=== PATIENT | male | born 1945 | race Caucasian/White ===

== ENCOUNTER → 2017-03-26 | Outpatient (CLI) | payer MEDICARE ==
--- NOTE | 2017-03-26 10:00 | XR ---
EXAMINATION TYPE: XR chest 2V DATE OF EXAM: 03/26/2017 COMPARISON: 12/12/2014 TECHNIQUE: PA and lateral views submitted. HISTORY: Cough FINDINGS: The lungs are clear and there is no pneumothorax, pleural effusion, or focal pneumonia. Atheroscler otic change aorta and arthropathy AC joints. IMPRESSION: 1. No acute process.
== END | disposition home or self-care (01) ==
LOC: RADXRMAIN 09:38
PROVIDERS: ATTEND Family Medicine
DX: R05 Cough (principal)
CPT/HCPCS: 71020

== ENCOUNTER → 2017-11-01 | Outpatient (CLI) | payer MEDICARE ==
--- NOTE | 2017-11-01 07:12 | US ---
EXAMINATION TYPE: US duplex aorta DATE OF EXAM: 11/01/2017 COMPARISON: NONE CLINICAL HISTORY: Z13.9 Screening for Disorder. Abnormal x-ray per patient, no symptoms EXAM MEASUREMENTS: Abdominal Aorta: Proximal: 2.7 x 2.7cm Mid: 2.2 x 2.3cm Distal: 1.7 x 2.0cm Bifurcation: not seen due to bowel gas Large body habitus and bowel gas limits exam, but no obvious abnormality seen IMPRESSION: Suboptimal study without ultrasound evidence for abdominal aortic aneurysm.
== END | disposition home or self-care (01) ==
LOC: RADUSWWP 06:41
PROVIDERS: ATTEND Family Medicine
DX: Z13.6 Encounter for screening for cardiovascular disorders (principal)
CPT/HCPCS: 93979

== ENCOUNTER 2017-11-19 07:40 | Day surgery (SDC) | payer MEDICARE ==
[~2017-11-19 07:40] MED LIST: LACTATED RINGERS 1,000 ML IV SCH
[2017-11-19 08:04] VITALS: TEMP 98.6
[2017-11-19] MEDS ORDERED: LIDOCAINE 1% 20 ML VIAL (10MG/ML) FOR IV START INTRADERMA ONE (08:14)
[2017-11-19] MEDS ORDERED: GLYCOPYRROLATE 0.2 MG/ML 2 ML VIAL ONE (09:09)
[2017-11-19] MEDS ORDERED: PROPOFOL 10 MG/ML 20 ML VIAL IV ONE (09:09)
[2017-11-19] MEDS ORDERED: LIDOCAINE 1% INJ 10MG/ML (20 ML MDV) ONE (09:09)
--- NOTE | 2017-11-19 09:42 | P.OP ---
Date of Procedure: 11/19/17 Preoperative Diagnosis: Screening colonoscopy Postoperative Diagnosis: Same Procedure(s) Performed: Colonoscopy Anesthesia: MAC Surgeon: Lola Carter Estimated Blood Loss (ml): 0 IV fluids (ml): 500 Pathology: none sent Condition: stable Disposition: PACU Indications for Procedure: Screening colonoscopy Operative Findings: Normal mucosa from cecum to the rectum small internal hemorrhoids Description of Procedure: Patient was taken to the endoscopy suite and following sedation rectal exam was performed. Patient was noted to have good sphincter tone no masses. Colonoscope was passed through the anus into the rectum. Was passed through the sigmoid colon up to splenic flexure. Through the transverse colon hepatic flexure right colon down to the area of the cecum. Circumferential observation mucosa did not reveal any lesions of concern in the cecum or right colon. No lesions of concern in the transverse colon left colon or sigmoid colon. Scope was brought down to the rectum where it was retroflexed internal hemorrhoids identified. Aproximally 6 minutes were taken to withdraw the scope from the area of the cecum to the rectum. Impression/plan: 1. Internal hemorrhoids Plan: 1. Repeat scope 7-10 years, patient may not occur secondary to the fact patient will be 82 at that time
--- NOTE | 2017-11-19 09:44 | P.DS ---
Providers Attending physician: Lola Carter Primary care physician: Chris Hogue Plan - Discharge Summary Discharge Rx Participant: No New Discharge Prescriptions: No Action Tamsulosin HCl [Flomax] 0.4 mg PO QAM Hydrochlorothiazide [Hydrochlorothiazide] 25 mg PO QAM Finasteride [Proscar] 5 mg PO QAM [place]-3 Fatty Acids/Fish Oil [Fish Oil 1,000 mg Softgel] 1 tab PO DAILY Aspirin [Adult Low Dose Aspirin EC] 81 mg PO DAILY Discharge Medication List Tamsulosin HCl [Flomax] 0.4 mg PO QAM 07/23/14 [History] Hydrochlorothiazide [Hydrochlorothiazide] 25 mg PO QAM 12/12/14 [History] Aspirin [Adult Low Dose Aspirin EC] 81 mg PO DAILY 11/15/17 [History] Finasteride [Proscar] 5 mg PO QAM 11/15/17 [History] [place]-3 Fatty Acids/Fish Oil [Fish Oil 1,000 mg Softgel] 1 tab PO DAILY [History] Follow up Appointment(s)/Referral(s): Lola Carter MD [STAFF PHYSICIAN] - As Needed Activity/Diet/Wound Care/Special Instructions: do not drive today Discharge Disposition: HOME SELF-CARE
[2017-11-19 09:56] VITALS: RESP 16
[2017-11-19 10:11] VITALS: BP 128/82; PULSE 69
== END 2017-11-19 10:24 | disposition home or self-care (01) ==
LOC: ORWHC2ENDO 07:40
PROVIDERS: ATTEND Surgery
DX: Z12.11 Encounter for screening for malignant neoplasm of colon (principal); K64.8 Other hemorrhoids; K21.9 Gastro-esophageal reflux disease without esophagitis; I10 Essential (primary) hypertension; E78.5 Hyperlipidemia, unspecified; G47.33 Obstructive sleep apnea (adult) (pediatric); K85.90 Acute pancreatitis without necrosis or infection, unspecified; Z79.899 Other long term (current) drug therapy
CPT/HCPCS: J2001; J2704; G0121

== ENCOUNTER 2021-06-29 17:12 | Emergency (ER) | payer MEDICARE ==
[2021-06-29] MEDS ORDERED: MORPHINE SULFATE 4 MG/ML SYRINGE IV STA (18:21)
[2021-06-29] MEDS ORDERED: SODIUM CHLORIDE 0.9% 500 ML 500 ML IV STA (18:21)
[2021-06-29] MEDS ORDERED: ACETAMINOPHEN TAB 500 MG TAB PO STA (18:21)
--- NOTE | 2021-06-29 18:28 | ED ---
General Adult HPI - General Source: patient, RN notes reviewed Mode of arrival: ambulatory Limitations: no limitations <Filemon Villarreal - Last Filed: 06/29/21 21:09> <Stephanie Day - Last Filed: 06/30/21 00:13> - General Chief complaint: Abdominal Pain Stated complaint: Abd pain, neck pain, headache Time Seen by Provider: 06/29/21 17:49 - History of Present Illness Initial comments: 75-year-old with a past medical history pancreatitis, hyperlipidemia, hypertension, GERD presents to the emergency room for a chief complaint of abdominal pain. Patient states she has had abdominal pain on and off since last night. States it is in the lower abdomen. It is a dull pain.He initiated nausea vomiting diarrhea. Patient did have a low-grade fever at home of 100. Patient also complains of some right-sided neck pain with been going on for a week. Hurts worse with movement. Comes and goes and is a sharp pain. Has also had a mild headache. His is concerned about coronavirus.Patient has no other complaints at this time including shortness of breath, chest pain,nausea or vomiting, , or visual changes. (Filemon Villarreal) - Related Data Home Medications Medication Instructions Recorded Confirmed Tamsulosin HCl [Flomax] 0.4 mg PO DAILY 07/23/14 06/29/21 Hydrochlorothiazide 25 mg PO DAILY 12/12/14 06/29/21 Finasteride [Proscar] 5 mg PO DAILY 11/15/17 06/29/21 Krill Oil 1,000 mg PO DAILY 06/29/21 06/29/21 Meclizine [Antivert] 25 mg PO TID PRN 06/29/21 06/29/21 Allergies Allergy/AdvReac Type Severity Reaction Status Date / Time No Known Allergies Allergy Verified 06/29/21 18:23 Review of Systems ROS Other: All systems not noted in ROS Statement are negative. <Filemon Villarreal - Last Filed: 06/29/21 21:09> ROS Other: All systems not noted in ROS Statement are negative. <Stephanie Day - Last Filed: 06/30/21 00:13> ROS Statement: Those systems with pertinent positive or pertinent negative responses have been documented in the HPI. Past Medical History Past Medical History: GERD/Reflux, Hyperlipidemia, Hypertension, Prostate Di sorder, Sleep Apnea/CPAP/BIPAP Additional Past Medical History / Comment(s): PAncreatitis. DOES NOT USE CPAP History of Any Multi-Drug Resistant Organisms: None Reported Past Surgical History: Orthopedic Surgery Additional Past Surgical History / Comment(s): foot surg., surg. for sleep apnea Past Anesthesia/Blood Transfusion Reactions: No Reported Reaction Past Psychological History: No Psychological Hx Reported Smoking Status: Never smoker Past Alcohol Use History: None Reported Past Drug Use History: None Reported <Filemon Villarreal P - Last Filed: 06/29/21 21:09> General Exam Limitations: no limitations General appearance: alert, in no apparent distress Head exam: Present: atraumatic Eye exam: Present: normal appearance, PERRL, EOMI. Absent: scleral icterus, conjunctival injection ENT exam: Present: normal exam, normal oropharynx, mucous membranes moist, TM's normal bilaterally, normal external ear exam Neck exam: Present: normal inspection, full ROM. Absent: tenderness, other (No erythema or edema) Respiratory exam: Present: normal lung sounds bilaterally. Absent: respiratory distress, wheezes Cardiovascular Exam: Present: regular rate, normal rhythm, normal heart sounds GI/Abdominal exam: Present: soft, tenderness (Minimal lower abdominal tenderness), normal bowel sounds. Absent: distended Neurological exam: Present: alert, oriented X3 Expanded Patient oriented to: Present: person, place, time Speech: Present: receptive aphasia Cranial nerves: EOM's Intact: Normal, Nystagmus: Normal, Facial Sensation: Normal Motor strength exam: RUE: 5, LUE: 5, RLE: 5, LLE: 5 <Filemon Villarreal P - Last Filed: 06/29/21 21:09> Course Vital Signs 06/29/21 06/29/21 06/29/21 17:20 20:35 21:19 Temperature 99.2 F 99.1 F Pulse Rate 94 62 67 Respiratory 18 16 16 Rate Blood Pressure 128/72 107/63 123/71 O2 Sat by Pulse 98 94 L 98 Oximetry Medical Decision Making - Lab Data Result diagrams: 06/29/21 18:41 06/29/21 18:39 <Filemon Villarreal P - Last Filed: 06/29/21 21:09> - Lab Data Result diagrams: 06/29/21 18:41 06/29/21 18:39 <Stephanie Day - Last Filed: 06/30/21 00:13> - Medical Decision Making Vitals are stable. CBC CMP unremarkable. EKG is nonischemic. Troponin is negative. Coronavirus is negative.CT brain was obtained given recent dizziness that shows no acute intracranial hemorrhage or mass effect or midline shift. No dizziness at this time. Patient was arty been seen by his doctor for this and is started on meclizine which he does not take. CT abdomen and pelvis does show mildly edematous distal pancreatic body and tail with surrounding pancreatic fat stranding could be seen in setting of early pancreatitis. However labs are normal. At this time patient can be discharged to follow up with primary care. However I do want him to go over his results with primary care. If he has worsening symptoms he will return to the emergency room.I discussed this case with attending Dr. Day who agrees with this assessment and treatment plan. (Filemon Villarreal) I was available for consultation in the emergency department. The history and physical exam were done by the midlevel provider. I was consulted for this patients care. I reviewed the case with the midlevel provider and based on their presentation of the patient, I agree with the assessment, medical decision making and plan of care as documented. Chart was dictated using iFit dictation software. Attempts were made to correct any dictation errors however some typographical errors may persist. Patient was seen during a national state of emergency due to the Covid-19 pandemic. (Stephanie Day) - Lab Data Lab Results 06/29/21 06/29/21 06/29/21 Range/Units 18:39 18:39 18:39 WBC (3.8-10.6) k/uL RBC (4.30-5.90) m/uL Hgb (13.0-17.5) gm/dL Hct (39.0-53.0) % MCV (80.0-100.0) fL MCH (25.0-35.0) pg MCHC (31.0-37.0) g/dL RDW (11.5-15.5) % Plt Count (150-450) k/uL MPV Neutrophils % % Lymphocytes % % Monocytes % % Eosinophils % % Basophils % % Neutrophils # (1.3-7.7) k/uL Lymphocytes # (1.0-4.8) k/uL Monocytes # (0-1.0) k/uL Eosinophils # (0-0.7) k/uL Basophils # (0-0.2) k/uL Sodium 136 L (137-145) mmol/L Potassium 3.9 (3.5-5.1) mmol/L Chloride 99 (98-107) mmol/L Carbon Dioxide 29 (22-30) mmol/L Anion Gap 8 mmol/L BUN 19 (9-20) mg/dL Creatinine 1.12 (0.66-1.25) mg/dL Est GFR (CKD-EPI)AfAm 74 (>60 ml/min/1.73 sqM) Est GFR (CKD-EPI)NonAf 64 (>60 ml/min/1.73 sqM) Glucose 115 H (74-99) mg/dL Plasma Lactic Acid [place] 1.4 (0.7-2.0) mmol/L Calcium 9.4 (8.4-10.2) mg/dL Total Bilirubin 1.1 (0.2-1.3) mg/dL AST 24 (17-59) U/L ALT 14 (4-49) U/L Alkaline Phosphatase 63 (38-126) U/L Troponin I <0.012 (0.000-0.034) ng/mL Total Protein 7.0 (6.3-8.2) g/dL Albumin 4.2 (3.5-5.0) g/dL Amylase 79 (30-110) U/L Lipase 171 (23-300) U/L Urine Color Urine Appearance (Clear) Urine pH (5.0-8.0) Ur Specific [place] (1.001-1.035) Urine Protein (Negative) Urine Glucose (UA) (Negative) Urine Ketones (Negative) Urine Blood (Negative) Urine Nitrite (Negative) Urine Bilirubin (Negative) Urine Urobilinogen (<2.0) mg/dL Ur Leukocyte Esterase (Negative) Coronavirus (PCR) (Not Detectd) 06/29/21 06/29/21 06/29/21 Range/Units 18:39 18:41 18:41 WBC 11.1 H (3.8-10.6) k/uL RBC 5.30 (4.30-5.90) m/uL Hgb 16.5 (13.0-17.5) gm/dL Hct 50.3 (39.0-53.0) % MCV 94.9 (80.0-100.0) fL MCH 31.1 (25.0-35.0) pg MCHC 32.8 (31.0-37.0) g/dL RDW 12.4 (11.5-15.5) % Plt Count 191 (150-450) k/uL MPV 7.5 Neutrophils % 83 % Lymphocytes % 8 % Monocytes % 7 % Eosinophils % 1 % Basophils % 0 % Neutrophils # 9.2 H (1.3-7.7) k/uL Lymphocytes # 0.9 L (1.0-4.8) k/uL Monocytes # 0.7 (0-1.0) k/uL Eosinophils # 0.1 (0-0.7) k/uL Basophils # 0.0 (0-0.2) k/uL Sodium (137-145) mmol/L Potassium (3.5-5.1) mmol/L Chloride (98-107) mmol/L Carbon Dioxide (22-30) mmol/L Anion Gap mmol/L BUN (9-20) mg/dL Creatinine (0.66-1.25) mg/dL Est GFR (CKD-EPI)AfAm (>60 ml/min/1.73 sqM) Est GFR (CKD-EPI)NonAf (>60 ml/min/1.73 sqM) Glucose (74-99) mg/dL Plasma Lactic Acid [place] (0.7-2.0) mmol/L Calcium (8.4-10.2) mg/dL Total Bilirubin (0.2-1.3) mg/dL AST (17-59) U/L ALT (4-49) U/L Alkaline Phosphatase (38-126) U/L Troponin I (0.000-0.034) ng/mL Total Protein (6.3-8.2) g/dL Albumin (3.5-5.0) g/dL Amylase (30-110) U/L Lipase (23-300) U/L Urine Color Yellow Urine Appearance Clear (Clear) Urine pH 5.5 (5.0-8.0) Ur Specific [place] 1.021 (1.001-1.035) Urine Protein Trace H (Negative) Urine Glucose (UA) Negative (Negative) Urine Ketones Negative (Negative) Urine Blood Negative (Negative) Urine Nitrite Negative (Negative) Urine Bilirubin Negative (Negative) Urine Urobilinogen <2.0 (<2.0) mg/dL Ur Leukocyte Esterase Negative (Negative) Coronavirus (PCR) Not Detected (Not Detectd) Disposition Is patient prescribed a controlled substance at d/c from ED?: No Time of Disposition: 21:11 <Filemon Villarreal - Last Filed: 06/29/21 21:09> <Stephanie Day - Last Filed: 06/30/21 00:13> Clinical Impression: Abdominal pain Disposition: HOME SELF-CARE Condition: Good Instructions (If sedation given, give patient instructions): Abdominal Pain (ED) Additional Instructions: Please continue to drink plenty of fluids. Follow-up with your doctor tomorrow. Return to the emergency room for any worsening symptoms. Referrals: Steven Melchor MD [Primary Care Provider] - 1-2 days
[2021-06-29 18:49] LABS: Basophils % (A) 0 %; Eosinophils # (A) 0.1 k/uL (0-0.7); Eosinophils % (A) 1 %; HCT 50.3 % (39.0-53.0); HGB 16.5 gm/dL (13.0-17.5); Lymphocytes # (A) 0.9 k/uL (1.0-4.8); Lymphocytes % (A) 8 %; MCH 31.1 pg (25.0-35.0); MCHC 32.8 g/dL (31.0-37.0); MCV 94.9 fL (80.0-100.0); Mean Platelet Volume 7.5; Monocytes # (A) 0.7 k/uL (0-1.0); Monocytes % (A) 7 %; Neutrophils # (A) 9.2 k/uL (1.3-7.7); Neutrophils % (A) 83 %; Platelet Count 191 k/uL (150-450); RDW 12.4 % (11.5-15.5); WBC 11.1 k/uL (3.8-10.6)
[2021-06-29 18:59] LABS: Appearance,Urine Clear (Clear); Bilirubin,Urine Negative (Negative); Blood,Urine Negative (Negative); Color,Urine Yellow; Glucose,Urine (UA) Negative (Negative); Ketones,Urine Negative (Negative); Leukocyte Esterase,Urine Negative (Negative); Nitrite,Urine Negative (Negative); PH, Urine 5.5 (5.0-8.0); Protein,Urine Trace (Negative); Specific Gravity,Urine 1.021 (1.001-1.035); Urobilinogen,Urine <2.0 mg/dL (<2.0)
[2021-06-29 19:06] LABS: Albumin 4.2 g/dL (3.5-5.0); Calcium 9.4 mg/dL (8.4-10.2); Potassium 3.9 mmol/L (3.5-5.1); Total Bilirubin 1.1 mg/dL (0.2-1.3)
--- NOTE | 2021-06-29 19:17 | XR ---
EXAMINATION TYPE: XR chest 2V DATE OF EXAM: 06/29/2021 COMPARISON: NONE HISTORY: Neck and abdominal pain TECHNIQUE: Frontal and lateral views of the chest are obtained. FINDINGS: There is no focal air space opacity, pleural effusion, or pneumothorax seen. The cardiac silhouette size is within normal limits. The osseous structures are intact. IMPRESSION: No acute cardiopulmonary process.
[2021-06-29 20:37] VITALS: RESP 16; TEMP 99.1
--- NOTE | 2021-06-29 20:42 | CT ---
EXAMINATION TYPE: CT brain wo con DATE OF EXAM: 06/29/2021 COMPARISON: None HISTORY: Headache, dizziness, neck pain CT DLP: 1129.4 mGycm Automated exposure control for dose reduction was used. FINDINGS: There is no acute intracranial hemorrhage, mass effect, or midline shift identified. The ventricles and sulci are within normal limits in size. The globes are intact and the visualized sinuses are talat ar. Hypodensity of the subcortical and periventricular white matter predominantly in frontal lobes is nonspecific but likely on the basis of chronic ischemic microangiopathic change. IMPRESSION: No acute intracranial hemorrhage, mass effect, or midline shift is seen.
--- NOTE | 2021-06-29 20:53 | CT ---
EXAMINATION TYPE: CT abdomen pelvis w con DATE OF EXAM: 06/29/2021 COMPARISON: None HISTORY: Abdominal pain CT DLP: 1168.2 mGycm Automated exposure control for dose reduction was used. TECHNIQUE: Helical acquisition of images was performed from the lung bases through the pelvis. CONTRAST: Performed with Oral Contrast and with IV Contrast, FINDINGS: LUNG BASES: No significant abnormality is appreciated. LIVER/GB: No significant abnormality. PANCREAS: Mild peripancreatic fat stranding involving the body and tail. No ductal dilatation. SPLEEN: Nonenlarged. Splenule. ADRENALS: No significant abnormality is seen. KIDNEYS: Bilateral subcentimeter hypodensities likely represent cysts. No hydronephrosis. Delayed meeta ging demonstrates bilateral contrast excretion. FREE AIR: No free air is visualized. RETROPERITONEAL ADENOPATHY: None visualized REPRODUCTIVE ORGANS: No significant abnormality is seen URINARY BLADDER: Encroachment on the floor of the bladder which is indented by an enlarged prostrate . PELVIC ADENOPATHY: None visualized. OSSEOUS STRUCTURES: No significant abnormality is seen. BOWEL: Redundant sigmoid colon the wall of which appears chronically thickened and which demonstrate s a few colonic diverticula. Nondilated loops of bowel. No free intraperitoneal fluid. Moderate stool in the ascending colon. Fecalization of the small bowel. OTHER: Atherosclerotic disease of the abdominal aorta without an aneurysm. IMPRESSION: 1. MILDLY EDEMATOUS DISTAL PANCREATIC BODY AND TAIL WITH SURROUNDING PERIPANCREATIC FAT STRANDING CAN BE SEEN IN THE SETTING OF EARLY ACUTE EDEMATOUS PANCREATITIS. NO PANCREATIC DUCTAL DILATATION. C ORRELATE WITH LAB VALUES. 2. COLONIC DIVERTICULOSIS WITHOUT EVIDENCE OF ACUTE DIVERTICULITIS.
[2021-06-29 21:20] VITALS: BP 123/71; PULSE 67
== END 2021-06-29 21:20 | disposition home or self-care (01) ==
LOC: EC 17:12
DX: R10.30 Lower abdominal pain, unspecified (principal); R51.9 Headache, unspecified; I10 Essential (primary) hypertension; Z79.899 Other long term (current) drug therapy; Z20.822 Contact with and (suspected) exposure to COVID-19
CPT/HCPCS: 36415; 93005; 80053; 82150; 83605; 83690; 84484; 85025; 81003; 87635; 71046; 70450; 74177; 99285; 96374; J2270; Q9967

== ENCOUNTER 2023-01-18 14:04 | Day surgery (SDC) | payer MEDICARE ==
[2023-01-15 09:07] VITALS: BMI 28.8
[~2023-01-18 14:04] MED LIST changes: +LIDOCAINE 1% (10MG/ML) FOR IV START INTRADERMA PRN
[2023-01-18 14:35] VITALS: RESP 16; TEMP 97.4
[2023-01-18] MEDS ORDERED: PROPOFOL 10 MG/ML 20 ML VIAL IV ONE (14:42)
[2023-01-18] MEDS ORDERED: LIDOCAINE 2% INJ 20 MG/ML (2 ML VIAL) ONE (14:42)
--- NOTE | 2023-01-18 14:52 | P.PCN ---
Date of Procedure: 01/18/23 Procedure(s) Performed: BRIEF HISTORY: Patient is a 77-year-old, pleasant, white male male scheduled for an upper endoscopy as a part of evaluation of long-standing history of GERD. He was on Prilosec 20 mg daily but recently was discontinued because of increased creatinine. He is currently on Pepcid 20 mg twice daily and scheduled for an upper endoscopy to rule out complicated reflux disease. PROCEDURE PERFORMED: Esophagogastroduodenoscopy with biopsy. PREOPERATIVE DIAGNOSIS: Long-standing history of GERD. IV sedation per anesthesia. PROCEDURE: After informed consent was obtained, the patient was brought into the endoscopy unit. IV sedation was administered by Anesthesia under continuous monitoring. Initially the Olympus GIF-140 video endoscope was inserted into the mouth. Esophagus intubated without any difficulty. It was gradually advanced into the stomach and duodenum and carefully examined. The bulb and mild duodenitis and the second part of the duodenum appeared normal. The scope at this time was withdrawn to the stomach, adequately insufflated with air, and upon careful examination, mucosa of the antrum, had mild gastritis and biopsies were done from this area. body, cardia and the fundus appeared normal. The scope was then withdrawn into the esophagus. The GE junction was located at 41 cm from the incisors. The esophagus appeared normal. There were no erosions or ulcerations seen and the patient tolerated the procedure well. IMPRESSION: 1. Mild antral gastritis and duodenitis. 2. Normal-appearing esophagus with no evidence of esophagitis or Sutton's esophagus. RECOMMENDATIONS: The findings of this examination were discussed with the patient as well as his family. He was advised to follow with the biopsy results. She will continue with Pepcid 20 mg twice daily and follow antireflux measures..
[2023-01-18 15:12] VITALS: BP 121/71; PULSE 63
== END 2023-01-18 15:38 | disposition home or self-care (01) ==
LOC: ORWHC2ENDO 14:04
PROVIDERS: ATTEND Internal Medicine Gastroenterology
DX: K21.00 Gastro-esophageal reflux disease with esophagitis, without bleeding (principal); K29.50 Unspecified chronic gastritis without bleeding; K29.80 Duodenitis without bleeding; I10 Essential (primary) hypertension; E78.5 Hyperlipidemia, unspecified; G47.33 Obstructive sleep apnea (adult) (pediatric); Z79.899 Other long term (current) drug therapy
CPT/HCPCS: 43239; J2704; J2001; 88305

== ENCOUNTER 2023-12-18 17:36 | Emergency (ER) | payer MEDICARE ==
[2023-12-18 17:55] VITALS: TEMP 98
--- NOTE | 2023-12-18 18:26 | ED ---
Recheck HPI - General Chief Complaint: Neuro Symptoms/Deficit Stated Complaint: Face Pain Time Seen by Provider: 12/18/23 17:56 Source: patient, old records reviewed Mode of arrival: ambulatory Limitations: no limitations - History of Present Illness Initial Comments: This is a 78-year-old male to the ER today. He presents today for evaluation regards to severe facial pain. Patient states he gets lightning strike sliding bolts of severe pain in the right side of his face with known diagnosis of trigeminal neuralgia. Patient states he is tried multiple medications at home without help. Patient has no improvement in symptoms despite home treatment. Has no recent trauma no fevers no other complaints and no other neurological complaints MD Complaint: other (Recheck for pain control) -: month(s) Returns Today for: persistent/worsening pain related to initial visit Symptoms Since Prior Visit: worsening pain Associated Symptoms: none - Related Data Home Medications Medication Instructions Recorded Confirmed Hydrochlorothiazide 12.5 mg PO DAILY 12/12/14 01/18/23 Krill Oil 1,000 mg PO DAILY 06/29/21 01/18/23 Famotidine 20 mg PO BID 01/18/23 01/18/23 carBAMazepine [TEGretol XR] 100 mg PO BID 01/18/23 01/18/23 Pregabalin [Lyrica] 75 mg PO 12/18/23 Allergies Allergy/AdvReac Type Severity Reaction Status Date / Time No Known Allergies Allergy Verified 01/18/23 14:28 Review of Systems ROS Statement: Those systems with pertinent positive or pertinent negative responses have been documented in the HPI. ROS Other: All systems not noted in ROS Statement are negative. Past Medical History Past Medical History: GERD/Reflux, Hyperlipidemia, Hypertension, Osteoarthritis (OA), Sleep Apnea/CPAP/BIPAP Additional Past Medical History / Comment(s): PAncreatitis. DOES NOT USE CPAP, FREQ HEARTBURN, TRIGEMINAL NEURALGIA History of Any Multi-Drug Resistant Organisms: None Reported Past Surgical History: Joint Replacement, Orthopedic Surgery Additional Past Surgical History / Comment(s): foot surg., surg. for sleep apnea, COLONOSCOPY, UROLIFT, LT TKA, Past Anesthesia/Blood Transfusion Reactions: No Reported Reaction Past Psychological History: No Psychological Hx Reported Smoking Status: Never smoker - Past Family History Father Family Medical History: Cancer Additional Family Medical History / Comment(s): LUNG General Exam Limitations: no limitations General appearance: alert, in no apparent distress Head exam: Present: atraumatic, normocephalic, normal inspection Eye exam: Present: normal appearance, PERRL, EOMI. Absent: scleral icterus, conjunctival injection, periorbital swelling ENT exam: Present: normal exam, mucous membranes moist Neck exam: Present: normal inspection. Absent: tenderness, meningismus, lymphadenopathy Respiratory exam: Present: normal lung sounds bilaterally. Absent: respiratory distress, wheezes, rales, rhonchi, stridor Cardiovascular Exam: Present: regular rate, normal rhythm, normal heart sounds. Absent: systolic murmur, diastolic murmur, rubs, gallop, clicks GI/Abdominal exam: Present: soft, normal bowel sounds. Absent: distended, tenderness, guarding, rebound, rigid Extremities exam: Present: normal inspection, full ROM, normal capillary refill. Absent: tenderness, pedal edema, joint swelling, calf tenderness Back exam: Present: normal inspection Neurological exam: Present: alert, oriented X3, CN II-XII intact Psychiatric exam: Present: normal affect, normal mood Skin exam: Present: warm, dry, intact, normal color. Absent: rash Course Vital Signs 12/18/23 12/18/23 17:50 20:00 Temperature 98 F Pulse Rate 63 61 Respiratory 16 20 Rate Blood Pressure 175/76 129/60 O2 Sat by Pulse 98 95 Oximetry - Reevaluation(s) Reevaluation #1: 12/18/23 19:57 Medical records reviewed Reevaluation #2: 12/18/23 19:57 Patient's pain is improved Reevaluation #3: 12/18/23 19:57 Patient informed of results and questions answered Reevaluation #4: Was pt. sent in by a medical professional or institution (, PA, RESERVOIR ENGINEERING CONSULTANT, urgent care, hospital, or [facility]...) When possible be specific @ -no Did you speak to anyone other than the patient for history (EMS, parent, family, police, friend...)? What history was obtained from this source @ -no Did you review nursing and triage notes (agree or disagree)? Why? @ -agree Are old charts reviewed (outside hosp., previous admission, EMS record, old EKG, old radiological studies, urgent care reports/EKG's, [facility] records)? Report findings @ -yes Differential Diagnosis (chest pain, altered mental status, abdominal pain women, abdominal pain men, vaginal bleeding, weakness, fever, dyspnea, syncope, headache, dizziness, GI bleed, back pain, seizure, CVA, palpatations, mental health, musculoskeletal)? @ -prior EKG interpreted by me (3pts min.). @ -no x-rays interpreted by me (1pt min.). @ -no CT interpreted by me (1pt min.). @ -no U/S interpreted by me (1pt. min.). @ -no What testing was considered but not performed or refused? (CT, X-rays, U/S, labs)? Why? @ -none What meds were considered but not given or refused? Why? @ -none Did you discuss the management of the patient with other professionals (professionals i.e. , PA, RESERVOIR ENGINEERING CONSULTANT, lab, RT, psych nurse, social work specialist, automotive brake technician, teacher, natural resource officer, case reviewer)? Give summary @ -no Was smoking cessation discussed for >3mins.? @ -no Was critical care preformed (if so, how long)? @ -no Were there social determinants of health that impacted care today? How? (Homelessness, low income, unemployed, alcoholism, drug addiction, transportation, low edu. Level, literacy, decrease access to med. care, halfway, rehab)? @ -none Was there de-escalation of care discussed even if they declined (Discuss DNR or withdrawal of care, Hospice)? DNR status @ -no What co-morbidities impacted this encounter? (DM, HTN, Smoking, COPD, CAD, Cancer, CVA, ARF, Chemo, Hep., AIDS, mental health diagnosis, sleep apnea, morbid obesity)? @ -none Was patient admitted / discharged? Hospital course, mention meds given and route, prescriptions, significant lab abnormalities, going to OR and other pertinent info. @ - 78 male with known diagnosis of trigeminal neuralgia here for pain control. Patient's pain is currently well-controlled and he can be discharged home Discharged Undiagnosed new problem with uncertain prognosis? @ -no Drug Therapy requiring intensive monitoring for toxicity (Heparin, Nitro, Insulin, Cardizem)? @ -no Were any procedures done? @ -no Diagnosis/symptom? @ -Trigeminal neuralgia, uncontrolled chronic pain Acute, or Chronic, or Acute on Chronic? @ -Acute Uncomplicated (without systemic symptoms) or Complicated (systemic symptoms)? @ -Complicated Side effects of treatment? @ -no Exacerbation, Progression, or Severe Exacerbation? @ -exacerbation Poses a threat to life or bodily function? How? (Chest pain, [place], [place], pneumonia, PE, COPD, DKA, ARF, appy, cholecystitis, CVA, Diverticulitis, Homicidal, Suicidal, threat to staff... and all critical care pts) @ -no Medical Decision Making - Medical Decision Making 78 male with known diagnosis of trigeminal neuralgia here for pain control. Patient's pain is currently well-controlled and he can be discharged home Disposition Clinical Impression: Trigeminal neuralgia Disposition: HOME SELF-CARE Condition: Good Instructions (If sedation given, give patient instructions): Trigeminal Neuralgia (ED) Is patient prescribed a controlled substance at d/c from ED?: No Referrals: Steven Melchor MD [Primary Care Provider] - 1-2 days Time of Disposition: 19:50
[2023-12-18] MEDS ORDERED: SODIUM CHLORIDE 0.9% 500 ML 500 ML IV STA (18:27)
[2023-12-18] MEDS ORDERED: SODIUM CHLORIDE 0.9% 1,000 ML IV STA ×2 (18:27)
[2023-12-18] MEDS: HYDROmorphone 1 MG/ML 1 ML SYRINGE IM STA (18:51)
[2023-12-18] MEDS: DEXAMETHASONE SOD PHOSPHATE 10 MG/ML 1 ML VIAL IVP STA (18:52)
[2023-12-18] MEDS: diphenhydrAMINE 50 MG CAP PO STA (18:56)
[2023-12-18] MEDS: PROCHLORPERAZINE 5 MG TAB PO STA (18:56)
[2023-12-18] MEDS: traMADol 50 MG STARTER PACK 3 TAB BTL PO STA (20:14)
[2023-12-18] MEDS: IBUPROFEN 600 MG STARTER PACK 4 TAB BTL PO STA (20:15)
[2023-12-18 20:29] VITALS: BP 129/60; PULSE 61; RESP 20
== END 2023-12-18 20:28 | disposition home or self-care (01) ==
LOC: EC 17:36
DX: G50.0 Trigeminal neuralgia (principal); G89.29 Other chronic pain
CPT/HCPCS: 99284; 96374; 96372; S0183; J1100; J1170

== ENCOUNTER 2025-01-11 19:39 | Inpatient (IN) | payer MEDICARE ==
--- NOTE | 2025-01-11 20:48 | ED ---
Nausea/Vomiting/Diarrhea HPI - General Chief complaint: Nausea/Vomiting/Diarrhea Stated complaint: abd pain,Vomiting,Dizziness Time Seen by Provider: 01/11/25 20:48 Source: patient, family, RN notes reviewed Mode of arrival: wheelchair Limitations: no limitations - History of Present Illness Initial comments: 79-year-old female with a past medical history significant of hyperlipidemia, hypertension and recent trigeminal nerve decompression surgery presented to the ER for evaluation of nausea, vomiting and dizziness. is providing the majority of HPI. She states for approximately 3 days patient has felt extremely dizzy causing nauseousness and vomiting. Patient states his dizziness feels as if the room is continuously spinning. Patient has attempted to drink liquids and has been unsuccessful in keeping them down. Patient also reports a mild headache. He denies any cough, congestion, runny nose or fevers. He has tried taking Zofran without relief of nausea. Patient denies any abdominal pain, diarrhea/constipation, chest pain, shortness of breath or urinary complaints. - Related Data Home Medications Medication Instructions Recorded Confirmed Famotidine 20 mg PO BID 01/18/23 01/11/25 Pregabalin [Lyrica] 75 mg PO HS 12/18/23 01/11/25 Ketoconazole 2% Shampoo [Nizoral] 1 applic TOPICAL DAILY 01/11/25 01/11/25 Ondansetron Odt [Zofran Odt] 4 mg PO Q8H PRN 01/11/25 01/11/25 Tamsulosin [Flomax] 0.4 mg PO BID 01/11/25 01/11/25 fluocinolone acetonide oiL 1 applic BOTH EARS DAILY PRN 01/11/25 01/11/25 [fluocinolone acetonide oiL Otic Soln] hydroCHLOROthiazide [Hydrodiuril] 12.5 mg PO DAILY 01/11/25 01/11/25 Allergies Allergy/AdvReac Type Severity Reaction Status Date / Time No Known Allergies Allergy Verified 01/11/25 20:35 Review of Systems ROS Statement: Those systems with pertinent positive or pertinent negative responses have been documented in the HPI. ROS Other: All systems not noted in ROS Statement are negative. Past Medical History Past Medical History: GERD/Reflux, Hyperlipidemia, Hypertension, Osteoarthritis (OA), Sleep Apnea/CPAP/BIPAP Additional Past Medical History / Comment(s): PAncreatitis. DOES NOT USE CPAP, FREQ HEARTBURN, TRIGEMINAL NEURALGIA History of Any Multi-Drug Resistant Organisms: None Reported Past Surgical History: Joint Replacement, Orthopedic Surgery Additional Past Surgical History / Comment(s): foot surg., surg. for sleep apnea, COLONOSCOPY, UROLIFT, LT TKA, Right retromstoid craniectomy and micovascular decompression trigeminal nerve (), Past Anesthesia/Blood Transfusion Reactions: No Reported Reaction Past Psychological History: No Psychological Hx Reported Smoking Status: Never smoker Past Alcohol Use History: None Reported Past Drug Use History: None Reported - Past Family History Father Family Medical History: Cancer Additional Family Medical History / Comment(s): LUNG General Exam Limitations: no limitations General appearance: alert, in no apparent distress Head exam: Present: atraumatic, normocephalic, normal inspection Eye exam: Present: normal appearance, PERRL, EOMI. Absent: scleral icterus, conjunctival injection, periorbital swelling Pupils: Present: normal accommodation, other (Pupils 2 mm bilaterally) ENT exam: Present: normal exam, normal oropharynx, mucous membranes moist Neck exam: Present: normal inspection. Absent: tenderness, meningismus, lymphadenopathy Respiratory exam: Present: normal lung sounds bilaterally. Absent: respiratory distress, wheezes, rales, rhonchi, stridor Cardiovascular Exam: Present: normal rhythm, bradycardia, normal heart sounds. Absent: systolic murmur, diastolic murmur, rubs, gallop, clicks GI/Abdominal exam: Present: soft, normal bowel sounds. Absent: distended, tenderness, guarding, rebound, rigid Neurological exam: Present: alert, oriented X3, CN II-XII intact Skin exam: Present: warm, dry, intact, normal color. Absent: rash Course Vital Signs 01/11/25 01/11/25 01/11/25 19:47 21:07 23:09 Temperature 98.2 F Pulse Rate 55 L 53 L 57 L Respiratory 16 18 17 Rate Blood Pressure 164/80 169/84 157/92 O2 Sat by Pulse 94 L 96 96 Oximetry - Reevaluation(s) Reevaluation #1: 01/11/25 22:28 patient reevlauated no signs of acute distress. Patient continuing to c/o dizziness. 01/11/25 23:49 Case discussed with [facility] by my attending, Dr. Robin, for admission Medical Decision Making - Medical Decision Making Was pt. sent in by a medical professional or institution (, KRISTEN, RESIDENT PHYSICIAN, urgent care, hospital, or residential...) When possible be specific @ -No Did you speak to anyone other than the patient for history (EMS, parent, family, police, friend...)? What history was obtained from this source @ -Patient's provided majority of HPI and past medical history. Did you review nursing and triage notes (agree or disagree)? Why? @ -I reviewed and agree with nursing and triage notes Were old charts reviewed (outside hosp., previous admission, EMS record, old EKG, old radiological studies, urgent care reports/EKG's, residential records)? Report findings @ -No old charts were reviewed Differential Diagnosis (chest pain, altered mental status, abdominal pain women, abdominal pain men, vaginal bleeding, weakness, fever, dyspnea, syncope, headache, dizziness, GI bleed, back pain, seizure, CVA, palpatations, mental health, musculoskeletal)? @ -Differential Dizziness:Benign paroxysmal positional Vertigo, Meniere's disease, otitis media, acoustic neuroma, vertebrobasilar insufficiency, ce rebellar stroke, encephalitis, hypovolemic, arrhythmia, coronary artery syndrome, anemia, this is not meant to be an all-inclusive list EKG interpreted by me (3pts min.). @ -As above X-rays interpreted by me (1pt min.). @ -None done CT interpreted by me (1pt min.). @ -CT brain showing no acute intracranial process. Encephalomalacia/hypodense area within right occipital lobe. Unclear if secondary to microvascular decompression trigeminal surgery 11/02/24. U/S interpreted by me (1pt. min.). @ -None done What testing was considered but not performed or refused? (CT, X-rays, U/S, labs)? Why? @ -None What meds were considered but not given or refused? Why? @ -None Did you discuss the management of the patient with other professionals (professionals i.e. , KRISTEN, RESIDENT PHYSICIAN, lab, RT, psych nurse, manager social responsibility, surgical services manager, teacher, quality officer, case monitor)? Give summary @ -Case discussed with [facility] by my attending, Dr. Robin for admission. Was smoking cessation discussed for >3mins.? @ -No Was critical care preformed (if so, how long)? @ -No Were there social determinants of health that impacted care today? How? (Homelessness, low income, unemployed, alcoholism, drug addiction, transpor tation, low edu. Level, literacy, decrease access to med. care, prison, rehab)? @ -No Was there de-escalation of care discussed even if they declined (Discuss DNR or withdrawal of care, Hospice)? DNR status @ -No What co-morbidities impacted this encounter? (DM, HTN, Smoking, COPD, CAD, Cancer, CVA, ARF, Chemo, Hep., AIDS, mental health diagnosis, sleep apnea, morbid obesity)? @ -Recent trigeminal nerve decompression surgery/HTN/HLD Was patient admitted / discharged? Hospital course, mention meds given and route, prescriptions, significant lab abnormalities, going to OR and other pertinent info. @ -Admitted. 79-year-old male presented to the ER for evaluation of dizziness, nausea and vomiting. Upon rooming, vitals within acceptable limits. Patient appears uncomfortable but no signs of acute distress. Patient speaking to me with his eyes closed as he is "dizzy". There are no acute neurological findings on exam. Laboratory studies and urinanalysis obtained concerning a dehydration likely due to decreased oral intake for which patient received IV fluids. No evidence of urinary tract infection. Troponin undetectable. Viral swabs negative. EKG showing a sinus bradycardia. No acute evidence of infarct or ischemia. Viral swabs negative. CT brain showing no acute intracranial process. There is encephalomalacia/hypodense area of the right occipital lobe possibly secondary to microvascular decompression of the trigeminal nerve completed on 11-02-2024. Patient given symptomatic treatment in the emergency department with IV Zofran, Reglan and p.o. meclizine. Upon reevaluation, patient resting comfortably in exam room. Patient continues to complain of dizziness but states his nausea has mildly improved. Given persistent symptoms, admission was considered and discussed by my attending, Dr. Robin, with [facility]. Neurology on consult. Second troponin pending at time of admission. Patient and patient's agreeable for admission. Patient admitted in stable condition. Case discussed with ED attending, Dr. Robin. Undiagnosed new problem with uncertain prognosis? @ -No Drug Therapy requiring intensive monitoring for toxicity (Heparin, Nitro, Insulin, Cardizem)? @ -No Were any procedures done? @ -No Diagnosis/symptom? @ -Dizziness/nausea and vomiting Acute, or Chronic, or Acute on Chronic? @ -Acute Uncomplicated (without systemic symptoms) or Complicated (systemic symptoms)? @ -Complicated Side effects of treatment? @ -No Exacerbation, Progression, or Severe Exacerbation? @ -No Poses a threat to life or bodily function? How? (Chest pain, [place], [place], pneumonia, PE, COPD, DKA, ARF, appy, cholecystitis, CVA, Diverticulitis, Homicidal, Suicidal, threat to staff... and all critical care pts) @ -Possibly - Lab Data Result diagrams: 01/11/25 20:59 01/11/25 20:59 Lab Results 01/11/25 01/11/25 01/11/25 Range/Units 20:59 20:59 20:59 WBC 6.39 (4.50-10.00) 10*3/uL RBC 5.40 (4.40-5.60) 10*6/uL Hgb 17.4 H (13.0-17.0) g/dL Hct 51.2 H (39.6-50.0) % MCV 94.8 (80.0-97.0) fL MCH 32.2 H (27.0-32.0) pg MCHC 34.0 (32.0-37.0) g/dL Plt Count 219 (140-440) 10*3/uL MPV 9.5 (9.5-12.2) fL Immature Gran % (Auto) 0.3 % Neutrophils % 85.2 % Lymphocytes % 8.0 % Monocytes % 5.5 % Eosinophils % 0.5 % Basophils % 0.5 % Immature Gran # 0.02 (0.00-0.04) 10*3/uL Neutrophils # 5.45 (1.80-7.70) 10*3/uL Lymphocytes # 0.51 L (0.90-5.00) 10*3/uL Monocytes # 0.35 (0.20-1.00) 10*3/uL Eosinophils # 0.03 L (0.04-0.35) 10*3/uL Basophils # 0.03 (0.00-0.10) 10*3/uL PT (10.0-12.5) sec INR (<1.2) APTT (22.0-30.0) sec Sodium 138 (137-145) mmol/L Potassium 4.7 (3.5-5.1) mmol/L Chloride 98 (98-107) mmol/L Carbon Dioxide 32 H (22-30) mmol/L Anion Gap 8 mmol/L BUN 25 H (9-20) mg/dL Creatinine 1.13 (0.66-1.25) mg/dL Est GFR (CKD-EPI)AfAm 71 (>60 ml/min/1.73 sqM) Est GFR (CKD-EPI)NonAf 61 (>60 ml/min/1.73 sqM) Glucose 129 H (74-99) mg/dL Plasma Lactic Acid Mayo 1.6 (0.7-2.0) mmol/L Calcium 9.9 (8.4-10.2) mg/dL Total Bilirubin 0.9 (0.2-1.3) mg/dL AST 25 (17-59) U/L ALT 19 (4-49) U/L Alkaline Phosphatase 85 (38-126) U/L Troponin I (0.000-0.034) ng/mL Total Protein 7.8 (6.3-8.2) g/dL Albumin 4.7 (3.5-5.0) g/dL Amylase 77 (30-110) U/L Lipase 104 (23-300) U/L Urine Color Urine Appearance (Clear) Urine pH (5.0-8.0) Ur Specific [place] (1.001-1.035) Urine Protein (Negative) Urine Glucose (UA) (Negative) Urine Ketones (Negative) Urine Blood (Negative) Urine Nitrite (Negative) Urine Bilirubin (Negative) Urine Urobilinogen (<2.0) mg/dL Ur Leukocyte Esterase (Negative) Urine WBC (0-5) /hpf Ur Squamous Epith Cells (0-4) /hpf Urine Mucus (None) /hpf Influenza Type A (PCR) (Not Detectd) Influenza Type B (PCR) (Not Detectd) RSV (PCR) (Not Detectd) SARS-CoV-2 (PCR) (Not Detectd) 01/11/25 01/11/25 01/11/25 Range/Units 20:59 21:17 22:35 WBC (4.50-10.00) 10*3/uL RBC (4.40-5.60) 10*6/uL Hgb (13.0-17.0) g/dL Hct (39.6-50.0) % MCV (80.0-97.0) fL MCH (27.0-32.0) pg MCHC (32.0-37.0) g/dL Plt Count (140-440) 10*3/uL MPV (9.5-12.2) fL Immature Gran % (Auto) % Neutrophils % % Lymphocytes % % Monocytes % % Eosinophils % % Basophils % % Immature Gran # (0.00-0.04) 10*3/uL Neutrophils # (1.80-7.70) 10*3/uL Lymphocytes # (0.90-5.00) 10*3/uL Monocytes # (0.20-1.00) 10*3/uL Eosinophils # (0.04-0.35) 10*3/uL Basophils # (0.00-0.10) 10*3/uL PT (10.0-12.5) sec INR (<1.2) APTT (22.0-30.0) sec Sodium (137-145) mmol/L Potassium (3.5-5.1) mmol/L Chloride (98-107) mmol/L Carbon Dioxide (22-30) mmol/L Anion Gap mmol/L BUN (9-20) mg/dL Creatinine (0.66-1.25) mg/dL Est GFR (CKD-EPI)AfAm (>60 ml/min/1.73 sqM) Est GFR (CKD-EPI)NonAf (>60 ml/min/1.73 sqM) Glucose (74-99) mg/dL Plasma Lactic Acid Mayo (0.7-2.0) mmol/L Calcium (8.4-10.2) mg/dL Total Bilirubin (0.2-1.3) mg/dL AST (17-59) U/L ALT (4-49) U/L Alkaline Phosphatase (38-126) U/L Troponin I <0.012 (0.000-0.034) ng/mL Total Protein (6.3-8.2) g/dL Albumin (3.5-5.0) g/dL Amylase (30-110) U/L Lipase (23-300) U/L Urine Color Yellow Urine Appearance Clear (Clear) Urine pH 6.0 (5.0-8.0) Ur Specific [place] 1.022 (1.001-1.035) Urine Protein 2+ H (Negative) Urine Glucose (UA) Negative (Negative) Urine Ketones 2+ H (Negative) Urine Blood Negative (Negative) Urine Nitrite Negative (Negative) Urine Bilirubin Negative (Negative) Urine Urobilinogen <2.0 (<2.0) mg/dL Ur Leukocyte Esterase Negative (Negative) Urine WBC 1 (0-5) /hpf Ur Squamous Epith Cells <1 (0-4) /hpf Urine Mucus Occasional H (None) /hpf Influenza Type A (PCR) Not Detected (Not Detectd) Influenza Type B (PCR) Not Detected (Not Detectd) RSV (PCR) Not Detected (Not Detectd) SARS-CoV-2 (PCR) Not Detected (Not Detectd) 01/11/25 Range/Units 22:35 WBC (4.50-10.00) 10*3/uL RBC (4.40-5.60) 10*6/uL Hgb (13.0-17.0) g/dL Hct (39.6-50.0) % MCV (80.0-97.0) fL MCH (27.0-32.0) pg MCHC (32.0-37.0) g/dL Plt Count (140-440) 10*3/uL MPV (9.5-12.2) fL Immature Gran % (Auto) % Neutrophils % % Lymphocytes % % Monocytes % % Eosinophils % % Basophils % % Immature Gran # (0.00-0.04) 10*3/uL Neutrophils # (1.80-7.70) 10*3/uL Lymphocytes # (0.90-5.00) 10*3/uL Monocytes # (0.20-1.00) 10*3/uL Eosinophils # (0.04-0.35) 10*3/uL Basophils # (0.00-0.10) 10*3/uL PT 11.2 (10.0-12.5) sec INR 1.0 (<1.2) APTT 20.5 L (22.0-30.0) sec Sodium (137-145) mmol/L Potassium (3.5-5.1) mmol/L Chloride (98-107) mmol/L Carbon Dioxide (22-30) mmol/L Anion Gap mmol/L BUN (9-20) mg/dL Creatinine (0.66-1.25) mg/dL Est GFR (CKD-EPI)AfAm (>60 ml/min/1.73 sqM) Est GFR (CKD-EPI)NonAf (>60 ml/min/1.73 sqM) Glucose (74-99) mg/dL Plasma Lactic Acid [place] (0.7-2.0) mmol/L Calcium (8.4-10.2) mg/dL Total Bilirubin (0.2-1.3) mg/dL AST (17-59) U/L ALT (4-49) U/L Alkaline Phosphatase (38-126) U/L Troponin I (0.000-0.034) ng/mL Total Protein (6.3-8.2) g/dL Albumin (3.5-5.0) g/dL Amylase (30-110) U/L Lipase (23-300) U/L Urine Color Urine Appearance (Clear) Urine pH (5.0-8.0) Ur Specific [place] (1.001-1.035) Urine Protein (Negative) Urine Glucose (UA) (Negative) Urine Ketones (Negative) Urine Blood (Negative) Urine Nitrite (Negative) Urine Bilirubin (Negative) Urine Urobilinogen (<2.0) mg/dL Ur Leukocyte Esterase (Negative) Urine WBC (0-5) /hpf Ur Squamous Epith Cells (0-4) /hpf Urine Mucus (None) /hpf Influenza Type A (PCR) (Not Detectd) Influenza Type B (PCR) (Not Detectd) RSV (PCR) (Not Detectd) SARS-CoV-2 (PCR) (Not Detectd) - EKG Data -: EKG Interpreted by Me EKG Comments: EKG taken at 20: 59 showing a sinus bradycardia with occasional PAC. No ST segment elevations or depressions. No T wave inversions. Ventricular rate 56, FL interval 148, QRS duration 86, QT/QTc 440/431. - Radiology Data Radiology results: report reviewed, image reviewed Disposition Clinical Impression: Dizziness, Nausea & vomiting Disposition: ADMITTED IP TO THIS HOSP Condition: Stable Referrals: Steven Melchor MD [Primary Care Provider] - 1-2 days Time of Disposition: 23:49
[2025-01-11 21:14] LABS: Basophils # (A) 0.03 10*3/uL (0.00-0.10); Basophils % (A) 0.5 %; Eosinophils # (A) 0.03 10*3/uL (0.04-0.35); Eosinophils % (A) 0.5 %; HCT 51.2 % (39.6-50.0); HGB 17.4 g/dL (13.0-17.0); Lymphocytes # (A) 0.51 10*3/uL (0.90-5.00); MCH 32.2 pg (27.0-32.0); MCV 94.8 fL (80.0-97.0); Mean Platelet Volume 9.5 fL (9.5-12.2); Monocytes # (A) 0.35 10*3/uL (0.20-1.00); Monocytes % (A) 5.5 %; Neutrophils # (A) 5.45 10*3/uL (1.80-7.70); Neutrophils % (A) 85.2 %; Platelet Count 219 10*3/uL (140-440); RDW 12.5 % (11.5-14.5); WBC 6.39 10*3/uL (4.50-10.00)
[2025-01-11] MEDS: SODIUM CHLORIDE 0.9% 1,000 ML IV STA (21:14)
[2025-01-11] MEDS: ONDANSETRON 4 MG/2 ML VIAL IVP STA (21:14)
[2025-01-11 21:24] LABS: ALT 19 U/L (4-49); AST 25 U/L (17-59); African American GFR (CKD) 71 (>60 ml/min/1.73 sqM); Albumin 4.7 g/dL (3.5-5.0); Alkaline Phosphatase 85 U/L (38-126); Amylase 77 U/L (30-110); Anion Gap 8 mmol/L; Blood Urea Nitrogen 25 mg/dL (9-20); Calcium 9.9 mg/dL (8.4-10.2); Carbon Dioxide 32 mmol/L (22-30); Chloride 98 mmol/L (98-107); Glucose 129 mg/dL (74-99); Lipase 104 U/L (23-300); Non-African American GFR(CKD) 61 (>60 ml/min/1.73 sqM); Potassium 4.7 mmol/L (3.5-5.1); Sodium 138 mmol/L (137-145); Total Bilirubin 0.9 mg/dL (0.2-1.3); Total Protein 7.8 g/dL (6.3-8.2)
[2025-01-11 21:51] LABS: Influenza A Not Detected (Not Detectd); Influenza B Not Detected (Not Detectd); RSV Not Detected (Not Detectd)
[2025-01-11 21:58] LABS: Appearance,Urine Clear (Clear); Bilirubin,Urine Negative (Negative); Blood,Urine Negative (Negative); Color,Urine Yellow; Glucose,Urine (UA) Negative (Negative); Ketones,Urine 2+ (Negative); Leukocyte Esterase,Urine Negative (Negative); Mucus,Urine Occasional /hpf; Nitrite,Urine Negative (Negative); Protein,Urine 2+ (Negative); Specific Gravity,Urine 1.022 (1.001-1.035); Squamous Epithelial Cell,Urine <1 /hpf (0-4); Urobilinogen,Urine <2.0 mg/dL (<2.0); WBC,Urine 1 /hpf (0-5)
--- NOTE | 2025-01-11 22:56 | CT ---
EXAMINATION TYPE: CT brain wo con DATE OF EXAM: 01/11/2025 10:33 PM COMPARISON: 06/29/2021. CLINICAL INDICATION: Male, 79 years old with history of dizziness, Patient reports dizziness, nausea, vomiting x48 hours. Right retromstoid craniectomy and microvascular decompression trigeminal nerve ( ) TECHNIQUE: Brain: Axial CT images of the brain were obtained with coronal and sagittal reformats created and rev iewed. Contrast used: None. Oral contrast used: None. CT DLP: 1188.1 mGycm, Automated exposure control for dose reduction was used. FINDINGS: Brain: Extra-axial spaces: No abnormal extra-axial fluid collections. Ventricular system: Within normal limits Cerebral parenchyma: No acute intraparenchymal hemorrhage or mass effect. The turner-white junction is well differentiated. Cerebellum: New from 06/29/2021, and cephalization of the right occipital lobe. Mass effect: No evidence of midline shift. Intracranial vasculature: unremarkable Soft tissues: Normal. Calvarium/osseous structures: No depressed skull fracture. Postsurgical changes to the right occipita l/minus mastoid region. Paranasal sinuses and mastoid air cells: Mild scattered paranasal sinus disea se. Visualized orbits: Orbital contents are intact. IMPRESSION: 1. No acute intracranial process. 2. New from prior 06/29/2021, encephalomalacia/hypodense area within the right occipital lobe. Unclea r if this is secondary to microvascular decompression trigeminal nerve surgery 11/02/2024. Consider MR I with contrast and correlation with prior outside imaging. [facility], , 01/11/2025 10:54 PM
[2025-01-11 22:58] LABS: Prothrombin Time 11.2 sec (10.0-12.5)
[2025-01-11] MEDS: MECLIZINE 12.5 MG TAB PO STA (23:07)
[2025-01-11 23:21] LABS: Partial Thromboplastin Time 20.5 sec (22.0-30.0)
[2025-01-11] MEDS ORDERED: NALOXONE 0.4 MG/ML 1 ML VIAL IV PRN (23:47)
[2025-01-11] MEDS: SODIUM CHLORIDE 0.9% 1,000 ML IV SCH (23:55)
[2025-01-11] MEDS: METOCLOPRAMIDE 5 MG/ML 2 ML VIAL IVP STA (23:56)
[2025-01-12] MEDS ORDERED: FLUOCINOLONE ACETONIDE BOTH EARS PRN (06:33)
[2025-01-12] MEDS: TAMSULOSIN 0.4 MG CAP.ER.24H PO SCH (08:21)
[2025-01-12] MEDS: FAMOTIDINE 20 MG TAB PO SCH (08:25)
[2025-01-12] MEDS: MECLIZINE 25 MG TAB PO PRN (10:10)
[2025-01-12] MEDS: ENOXAPARIN 40 MG/0.4 ML SYRINGE SQ SCH (10:10)
[2025-01-12] MEDS: ACETAMINOPHEN TAB 325 MG TAB PO PRN (10:11)
[2025-01-12] MEDS: KETOCONAZOLE 2% SHAMPOO 1 APPLIC/ML TOPICAL SCH (10:44)
[2025-01-12] MEDS ORDERED: HYDROmorphone 0.5 MG/0.5 ML SYRINGE IVP PRN (11:25)
[2025-01-12] MEDS: ONDANSETRON 4 MG/2 ML VIAL IVP PRN (11:30)
[2025-01-12] MEDS: BUTALB/APAP/CAFF 50-325-40MG TAB PO PRN (11:30)
--- NOTE | 2025-01-12 12:52 | P.CNNES ---
History of Present Illness Consult date: 01/12/25 Requesting physician: Brenda Navarro Reason for Consult: dizziness History of Present Illness: This is an 79 year-old gentleman with history of right trigeminal neuralgia s/p decompression on 11/02/2024 who presents to the emergency department because of dizziness. He is accompanied by his . It seems he has been having dizziness, nausea and vomiting since this Saturday and got worse Saturday and result came to hospital yesterday. Patient felt he has spinning of head and could not describe it. [place]son dizzy at rest and with movement. Denies ringing of the ears, hearing loss, head trauma or fall. Denies any recent sickness. His feels he is more slurred compared to baseline. He does not have history of stroke but did have decompression for his trigeminal neuralgia at [facility] and followed-up with Dr. Cuba, Neurosurgeon about three weeks ago and according to his was doing was doing well and does not have to follow-up further. Some of the work-up during this hospital visit consisted of: I reviewed the lab work-up. CT head: No acute intracrnail process. New from prior 06/29/2021, encephalo malacia/hypodense area within the right occipital lobe. Unclear if this is secondary to microvascular decompression trigeminal nerve surgery 11/02/2024. I personally reviewed it and felt encephalomalacia was over the right cerebellar and not occipital region and this seems due to likely from decompression. Review of Systems As per HPI. Past Medical History Past Medical History: GERD/Reflux, Hyperlipidemia, Hypertension, Osteoarthritis (OA), Sleep Apnea/CPAP/BIPAP Additional Past Medical History / Comment(s): PAncreatitis. DOES NOT USE CPAP, FREQ HEARTBURN, TRIGEMINAL NEURALGIA History of Any Multi-Drug Resistant Organisms: None Reported Past Surgical History: Joint Replacement, Orthopedic Surgery Additional Past Surgical History / Comment(s): foot surg., surg. for sleep apnea, COLONOSCOPY, UROLIFT, LT TKA, Right retromstoid craniectomy and micovascular decompression trigeminal nerve (), Past Anesthesia/Blood Transfusion Reactions: No Reported Reaction Past Psychological History: No Psychological Hx Reported Smoking Status: Never smoker Past Alcohol Use History: None Reported Past Drug Use History: None Reported - Past Family History Father Family Medical History: Cancer Additional Family Medical History / Comment(s): LUNG Medications and Allergies Home Medications Medication Instructions Recorded Confirmed Type Famotidine 20 mg PO BID 01/18/23 01/11/25 History Pregabalin [Lyrica] 75 mg PO HS 12/18/23 01/11/25 History Ketoconazole 2% Shampoo [Nizoral] 1 applic TOPICAL DAILY 01/11/25 01/11/25 History Ondansetron Odt [Zofran Odt] 4 mg PO Q8H PRN 01/11/25 01/11/25 History Tamsulosin [Flomax] 0.4 mg PO BID 01/11/25 01/11/25 History fluocinolone acetonide oiL 1 applic BOTH EARS DAILY PRN 01/11/25 01/11/25 History [fluocinolone acetonide oiL Otic Soln] hydroCHLOROthiazide [Hydrodiuril] 12.5 mg PO DAILY 01/11/25 01/11/25 History Allergies Allergy/AdvReac Type Severity Reaction Status Date / Time No Known Allergies Allergy Verified 01/11/25 20:35 Physical Examination - Vital Signs Vital Signs: Vital Signs Temp Pulse Pulse Resp BP BP Pulse Ox 01/12/25 07:26 98.5 F 52 L 18 118/67 93 L 01/12/25 02:01 97.3 F L 61 17 155/72 93 L 01/12/25 01:44 56 L 17 96 01/11/25 23:09 57 L 17 157/92 96 01/11/25 21:07 53 L 18 169/84 96 01/11/25 19:47 98.2 F 55 L 16 164/80 94 L Intake and Output 01/11/25 01/12/25 01/12/25 22:59 06:59 14:59 Output Total 275 Balance -275 Output: Urine 275 Other: # Voids 1 Weight 90.718 kg 90.718 kg General: Lying in bed and is not in acute distress. Neuro: Somewhat limited since patient was dizziness and nauseous. The patient is awake, alert, oriented to self and correctly stated he was in the hospital (after second try). Is following simple commands. No aphasia. Pupils are round, 3mm and reactive to light. Visual hernandez are full to confrontation. EOM intact and no nystagmus. No facial weakness. Has mild dysarthria. Motor: Lifting briefly uppers above gravity equally as well as lowers. Cerebellar: Normal finger to nose bilaterally. Sensation: Normal to touch throughout. Results - Laboratory Findings CBC and BMP: 01/11/25 20:59 01/11/25 20:59 Abnormal Lab Findings: Abnormal Labs 01/11/25 01/11/25 01/11/25 20:59 20:59 21:17 Hgb 17.4 H Hct 51.2 H MCH 32.2 H Lymphocytes # 0.51 L Eosinophils # 0.03 L APTT Carbon Dioxide 32 H BUN 25 H Glucose 129 H Urine Protein 2+ H Urine Ketones 2+ H Urine Mucus Occasional H 01/11/25 22:35 Hgb Hct MCH Lymphocytes # Eosinophils # APTT 20.5 L Carbon Dioxide BUN Glucose Urine Protein Urine Ketones Urine Mucus Assessment and Plan Assessment: This is an 79 y/o gentleman with hx of right trigemenal neuralgia s/p decompression on 11/02/2024 at [facility] who presents because of dizziness, nausea, vomiting and dysathria. Acute vertigo with dysarthria: Rule out stroke vs peripheral. On examination other than dysarthria no focal deficits. History of right trigeminal neuralgia s/p decompression on 11/02/2024 and had encephalomalacia over the right cerebellar as result of decompression Plan: CT head: No acute intracrnail process. New from prior 06/29/2021, encephalomalacia/hypodense area within the right occipital lobe. Unclear if this is secondary to microvascular decompression trigeminal nerve surgery . I personally reviewed it and felt encephalomalacia was over the right cerebellar and not occipital region and this seems due to likely from decompression. I ordered MRI Brain, MRA head and neck. I change Meclizine 25mg 1 tab qid from PRN to schedule for 7 days. Continue IV fluids. Will defer the rest of medical management to primary team and other specialist. The plan is discussed with his . Thank you for the consultation Time with Patient: Greater than 30
[2025-01-12] MEDS: MECLIZINE 25 MG TAB PO SCH (14:22)
--- NOTE | 2025-01-12 20:31 | P.HPIM ---
History of Present Illness H&P Date: 01/12/25 History of present illness; Patient has 79-year-old male with trigeminal nerve decompression surgery on October presented with nausea, vomiting and dizziness. Patient's was present and provided much of the history. She states for approximately 3 days patient has felt extremely dizzy, causing nausea and vomiting. Patient states he feels room is constantly spinning, both with rest and movement. He is unable to tolerate both liquids and meals. He has tried taking Zofran without relief of nausea. He denies ringing in ears, hearing loss or head trauma or fall. No stroke history. He follows at [facility] with Dr. Cuba neurosurgeon. Patient denies any abdominal pain, diarrhea/constipation, chest pain, shortness of breath or urinary complaints. Spoke with the ER physician, patient admission was accepted by internal medicine service for treatment. REVIEW OF SYSTEMS: Pertinent positives and negatives noted in HPI. PHYSICAL EXAMINATION: Vitals reviewed GENERAL: Resting comfortably in bed. EYES: PERRL, no scleral injection or icterus. HENT: Normocephalic, atraumatic, hearing grossly intact, dry mucous membranes NECK: No tracheal deviation, full range of motion. CARDIOVASCULAR: S1 and S2 present. No murmurs, rubs, or gallops. PULMONARY: Chest is clear to auscultation, no wheezing, rhonchi, or crackles. ABDOMEN: Soft, nontender, nondistended. No palpable organomegaly. MUSCULOSKELETAL: No apparent joint swelling and deformities. EXTREMITIES: No apparent cyanosis, clubbing. No pedal edema. NEUROLOGICAL: Gross neurological examination with no apparent focal deficits. SKIN: No apparent rashes. ER FINDINGS: Labs significant for hemoglobin 17.4, bicarb 32, BUN 25, glucose 129, amylase and lipase is WNL, troponin negative, UA significant for protein 2+, ketones 2+, negative viral respiratory panel EKG independently interpreted showed sinus bradycardia heart rate of 56, QTc 431, with supraventricular premature complexes, no ST segment elevation or dep ression seen, no T-wave inversions seen. CT brain independently interpreted showed no acute intracranial process. Hypodense area within right occipital lobe. Assessment and Plan: In summary, patient has 79-year-old male with recent trigeminal nerve decompression surgery presented with nausea, vomiting and dizziness. # Nausea and vomiting, possibly related to vertigo #Starvation ketosis Given 1 L NS Continue NS at 75 mL/h Begin Zofran 4 mg IVP every 8 hours as needed for nausea and vomiting Begin Dilaudid 0.5 mg IV every 6 hours for pain Monitor BMP # Acute vertigo with dysarthria CT brain findings of hypodense area within right occipital lobe/cerebellum No focal deficits on exam Unclear etiology, possibly secondary to microvascular decompression trigeminal nerve surgery 11/02/2024 Begin meclizine 25 mg 4 times daily as needed for vertigo MRI brain, MRA head and neck ordered, rule out CVA Neurology consulted Chronic Medical Conditions #GERD #BPH Resume home medications DVT ppx: Subq Lovenox 40 meq daily Code status: Full code F: IV Normal saline 75 mL/hr E: Replete as needed N: Heart healthy diet Anticipated discharge place: Pending clinical course Anticipated discharge time: Pending clinical course Dictation was produced using [employer] dictation software. Please excuse any grammatical, word or spelling errors. Past Medical History Past Medical History: GERD/Reflux, Hyperlipidemia, Hypertension, Osteoarthritis (OA), Sleep Apnea/CPAP/BIPAP Additional Past Medical History / Comment(s): PAncreatitis. DOES NOT USE CPAP, FREQ HEARTBURN, TRIGEMINAL NEURALGIA History of Any Multi-Drug Resistant Organisms: None Reported Past Surgical History: Joint Replacement, Orthopedic Surgery Additional Past Surgical History / Comment(s): foot surg., surg. for sleep apnea , COLONOSCOPY, UROLIFT, LT TKA, Right retromstoid craniectomy and micovascular decompression trigeminal nerve (), Past Anesthesia/Blood Transfusion Reactions: No Reported Reaction Past Psychological History: No Psychological Hx Reported Smoking Status: Never smoker Past Alcohol Use History: None Reported Past Drug Use History: None Reported - Past Family History Father Family Medical History: Cancer Additional Family Medical History / Comment(s): LUNG Medications and Allergies Home Medications Medication Instructions Recorded Confirmed Type Famotidine 20 mg PO BID 01/18/23 01/11/25 History Pregabalin [Lyrica] 75 mg PO HS 12/18/23 01/11/25 History Ketoconazole 2% Shampoo [Nizoral] 1 applic TOPICAL DAILY 01/11/25 01/11/25 History Ondansetron Odt [Zofran Odt] 4 mg PO Q8H PRN 01/11/25 01/11/25 History Tamsulosin [Flomax] 0.4 mg PO BID 01/11/25 01/11/25 History fluocinolone acetonide oiL 1 applic BOTH EARS DAILY PRN 01/11/25 01/11/25 History [fluocinolone acetonide oiL Otic Soln] hydroCHLOROthiazide [Hydrodiuril] 12.5 mg PO DAILY 01/11/25 01/11/25 History Allergies Allergy/AdvReac Type Severity Reaction Status Date / Time No Known Allergies Allergy Verified 01/11/25 20:35 Physical Exam Vitals: Vital Signs Temp Pulse Pulse Resp BP BP Pulse Ox 01/12/25 07:26 98.5 F 52 L 18 118/67 93 L 01/12/25 02:01 97.3 F L 61 17 155/72 93 L 01/12/25 01:44 56 L 17 96 01/11/25 23:09 57 L 17 157/92 96 01/11/25 21:07 53 L 18 169/84 96 01/11/25 19:47 98.2 F 55 L 16 164/80 94 L Intake and Output 01/11/25 01/12/25 01/12/25 22:59 06:59 14:59 Output Total 275 Balance -275 Output: Urine 275 Other: # Voids 1 Weight 90.718 kg 90.718 kg Results CBC & Chem 7: 01/11/25 20:59 01/11/25 20:59 Labs: Abnormal Lab Results - Last 24 Hours (Table) 01/11/25 01/11/25 01/11/25 Range/Units 20:59 20:59 21:17 Hgb 17.4 H (13.0-17.0) g/dL Hct 51.2 H (39.6-50.0) % MCH 32.2 H (27.0-32.0) pg Lymphocytes # 0.51 L (0.90-5.00) 10*3/uL Eosinophils # 0.03 L (0.04-0.35) 10*3/uL APTT (22.0-30.0) sec Carbon Dioxide 32 H (22-30) mmol/L BUN 25 H (9-20) mg/dL Glucose 129 H (74-99) mg/dL Urine Protein 2+ H (Negative) Urine Ketones 2+ H (Negative) Urine Mucus Occasional H (None) /hpf 01/11/25 Range/Units 22:35 Hgb (13.0-17.0) g/dL Hct (39.6-50.0) % MCH (27.0-32.0) pg Lymphocytes # (0.90-5.00) 10*3/uL Eosinophils # (0.04-0.35) 10*3/uL APTT 20.5 L (22.0-30.0) sec Carbon Dioxide (22-30) mmol/L BUN (9-20) mg/dL Glucose (74-99) mg/dL Urine Protein (Negative) Urine Ketones (Negative) Urine Mucus (None) /hpf Thrombosis Risk Factor Assmnt - Choose All That Apply Any of the Below Risk Factors Present?: Yes Each Factor Represents 1 point: Obesity (BMI >25) Each Risk Factor Represents 3 Points: Age 75 years or older Thrombosis Risk Factor Assessment Total Risk Factor Score: 4 Thrombosis Risk Factor Assessment Level: Moderate Risk
[2025-01-12] MEDS: PANTOPRAZOLE 40 MG/10 ML VIAL IVP SCH (21:03)
[2025-01-12] MEDS: PREGABALIN 75 MG CAP PO SCH (21:03)
[2025-01-13 08:19] LABS: Basophils # (A) 0.04 X 10*3/uL (0.00-0.10); Basophils % (A) 0.5 %; Eosinophils # (A) 0.25 X 10*3/uL (0.04-0.35); Eosinophils % (A) 3.4 %; HCT 42.8 % (39.6-50.0); HGB 14.2 g/dL (13.0-17.0); Lymphocytes # (A) 1.21 X 10*3/uL (0.90-5.00); Lymphocytes % (A) 16.4 %; MCHC 33.2 g/dL (32.0-37.0); MCV 96.4 FL (80.0-97.0); Mean Platelet Volume 10.6 FL (9.5-12.2); Monocytes # (A) 0.66 X 10*3/uL (0.20-1.00); Monocytes % (A) 8.9 %; NRBC Per 100 WBC 0 X 10*3/uL (0.00-0.01); Neutrophils # (A) 5.22 X 10*3/uL (1.80-7.70); Neutrophils % (A) 70.5 %; Platelet Count 188 X 10*3/uL (140-440); RBC 4.44 X 10*6/uL (4.40-5.60); RDW 12.8 % (11.5-14.5)
[2025-01-13 08:26] LABS: Blood Urea Nitrogen 19.4 mg/dL (9.0-27.0); Calcium 8.2 mg/dL (8.7-10.3); Carbon Dioxide 24.4 mmol/L (21.6-31.8); Chloride 108 mmol/L (96-109); Glucose 100 mg/dL (70-110); Potassium 3.9 mmol/L (3.5-5.5); Sodium 141 mmol/L (135-145)
--- NOTE | 2025-01-13 12:57 | P.PN ---
Subjective Progress Note Date: 01/13/25 I am following-up with patient and per the who is at bedside he continues to be dizzy and having headache. He is pending to have MRI Brain. Objective - Vital Signs Vital signs: Vital Signs Temp 98.3 F 01/13/25 07:54 Pulse 60 01/13/25 07:54 Resp 18 01/13/25 07:54 BP 153/81 01/13/25 07:54 Pulse Ox 93 L 01/13/25 07:54 FiO2 Intake & Output 01/12/25 01/13/25 01/13/25 18:59 06:59 18:59 Intake Total 1080 Output Total 650 Balance 430 Intake: Oral 1080 Output: Urine 650 Other: Voiding Method Urinal # Voids 1 1 # Bowel Movements 0 - Exam General: Lying in bed and is not in acute distress. Neuro: Somewhat limited since patient is dizziness. No facial weakness. Some of the work-up during this hospital visit consisted of: I reviewed the lab work-up. CT head: No acute intracrnail process. New from prior 06/29/2021, encephalomalacia/hypodense area within the right occipital lobe. Unclear if this is secondary to microvascular decompression trigeminal nerve surgery 11/02/2024. I personally reviewed it and felt encephalomalacia was over the right cerebellar and not occipital region and this seems due to likely from decompression. - Labs CBC & Chem 7: 01/13/25 02:59 01/13/25 02:59 Labs: Abnormal Lab Results - Last 24 Hours (Table) 01/13/25 Range/Units 02:59 Calcium 8.2 L (8.7-10.3) mg/dL Assessment and Plan Assessment: This is an 79 y/o gentleman with hx of right trigemenal neuralgia s/p decompression on 11/02/2024 at [facility] who presents because of dizziness, n ausea, vomiting and dysathria. Acute vertigo with dysarthria: Rule out stroke vs peripheral. On examination other than dysarthria no focal deficits. History of right trigeminal neuralgia s/p decompression on 11/02/2024 and had encephalomalacia over the right cerebellar as result of decompression Plan: CT head: No acute intracrnail process. New from prior 06/29/2021, encephalomalacia/hypodense area within the right occipital lobe. Unclear if this is secondary to microvascular decompression trigeminal nerve surgery 11/02/2024. I personally reviewed it and felt encephalomalacia was over the right cerebellar and not occipital region and this seems due to likely from decompression. Pending MRI Brain, MRA head and neck. Continue Meclizine 25mg 1 tab qid from PRN to schedule for 7 days and after that PRN. Continue IV fluids. Will defer the rest of medical management to primary team and other specialist. The plan is discussed with patient and his . Time with Patient: Less than 30
--- NOTE | 2025-01-13 16:49 | P.PN ---
Subjective Progress Note Date: 01/13/25 History of present illness; Patient has 79-year-old male with trigeminal nerve decompression surgery on Oct presented with nausea, vomiting and dizziness. Patient's was present and provided much of the history. She states for approximately 3 days patient has felt extremely dizzy, causing nausea and vomiting. Patient states he feels room is constantly spinning, both with rest and movement. He is unable to tolerate both liquids and meals. He has tried taking Zofran without relief of nausea. He denies ringing in ears, hearing loss or head trauma or fall. No stroke history. He follows at [facility] with Dr. Cuba neurosurgeon. Patient denies any abdominal pain, diarrhea/constipation, chest pain, shortness of breath or urinary complaints. REVIEW OF SYSTEMS: Pertinent positives and negatives noted in HPI. 01/13/2025 Patient seen and examined at bedside. Patient attest to some mild abdominal pain without bowel movement since admission. He continues to attest to intermittent dizziness. Awaiting outside reports to proceed with MRI. PHYSICAL EXAMINATION: Vitals reviewed GENERAL: Resting comfortably in bed. EYES: PERRL, no scleral injection or icterus. HENT: Normocephalic, atraumatic, hearing grossly intact, moist mucous membranes NECK: No tracheal deviation, full range of motion. CARDIOVASCULAR: S1 and S2 present. No murmurs, rubs, or gallops. PULMONARY: Chest is clear to auscultation, no wheezing, rhonchi, or crackles. ABDOMEN: Soft, nontender, nondistended. No palpable organomegaly. MUSCULOSKELETAL: No apparent joint swelling and deformities. EXTREMITIES: No apparent cyanosis, clubbing. No pedal edema. NEUROLOGICAL: Gross neurological examination with no apparent focal deficits. SKIN: No apparent rashes. Significant objective findings: LabsCBC is WNL, BMP calcium 8.2 otherwise unremarkable No new imaging today Assessment and Plan: In summary, patient has 79-year-old male with recent trigeminal nerve decompression surgery presented with nausea, vomiting and dizziness. # Nausea and vomiting, possibly related to vertigo #Starvation ketosis Continue IV fluids Begin Zofran 4 mg IVP every 8 hours as needed for nausea and vomiting Begin Dilaudid 0.5 mg IV every 6 hours for pain Monitor BMP # Acute vertigo with dysarthria CT brain findings of hypodense area within right occipital lobe/cerebellum No focal deficits on exam Unclear etiology, possibly secondary to microvascular decompression trigeminal nerve surgery 11/02/2024 Begin meclizine 25 mg 4 times daily as needed for vertigo MRI brain, MRA head and neck ordered, rule out CVA Neurology consulted Chronic Medical Conditions #GERD #BPH Resume home medications DVT ppx: Subq Lovenox 40 meq daily Code status: Full code F: IV Normal saline 75 mL/hr E: Replete as needed N: Heart healthy diet Anticipated discharge place: Pending clinical course Anticipated discharge time: Pending clinical course Dictation was produced using [employer] dictation software. Please excuse any grammatical, word or spelling errors. Objective - Vital Signs Vital signs: Vital Signs Temp 97.3 F L 01/13/25 14:00 Pulse 61 01/13/25 14:00 Resp 18 01/13/25 14:00 BP 114/66 01/13/25 14:00 Pulse Ox 94 L 01/13/25 14:00 FiO2 Intake & Output 01/12/25 01/13/25 01/13/25 18:59 06:59 18:59 Intake Total 1080 Output Total 650 Balance 430 Intake: Oral 1080 Output: Urine 650 Other: Voiding Method Urinal Urinal # Voids 1 1 # Bowel Movements 0 - Labs CBC & Chem 7: 01/13/25 02:59 01/13/25 02:59 Labs: Abnormal Lab Results - Last 24 Hours (Table) 01/13/25 Range/Units 02:59 Calcium 8.2 L (8.7-10.3) mg/dL
[2025-01-13] MEDS: SENNOSIDES-DOCUSATE SODIUM 1 EACH TAB PO SCH (20:59)
[2025-01-13] MEDS: PANTOPRAZOLE 40 MG TABLET PO SCH (20:59)
[2025-01-14 09:01] LABS: Blood Urea Nitrogen 14.4 mg/dL (9.0-27.0); Calcium 7.7 mg/dL (8.7-10.3); Carbon Dioxide 27.5 mmol/L (21.6-31.8); Chloride 108 mmol/L (96-109); Glucose 98 mg/dL (70-110); Potassium 3.9 mmol/L (3.5-5.5); Sodium 140 mmol/L (135-145)
[2025-01-14] MEDS ORDERED: polyethylene glycoL 3350 17 GM POWD.PACK PO SCH (11:30)
--- NOTE | 2025-01-14 14:11 | P.PN ---
Subjective Progress Note Date: 01/14/25 I am following-up with patient and per the who is at bedside he is about the same. Pending MRI Brain which is schedule today. Objective - Vital Signs Vital signs: Vital Signs Temp 98.4 F 01/14/25 06:52 Pulse 61 01/14/25 06:52 Resp 18 01/14/25 06:52 BP 117/71 01/14/25 06:52 Pulse Ox 92 L 01/14/25 06:52 FiO2 Intake & Output 01/13/25 01/14/25 01/14/25 18:59 06:59 18:59 Intake Total 240 Balance 240 Intake: Oral 240 Other: Voiding Method Urinal Urinal # Voids 2 3 # Bowel Movements 0 - Exam General: Lying in bed and is not in acute distress. Neuro: Somewhat limited since patient is dizziness. No facial weakness. Some of the work-up during this hospital visit consisted of: I reviewed the lab work-up. CT head: No acute intracrnail process. New from prior 06/29/2021, encephalomalacia/hypodense area within the right occipital lobe. Unclear if this is secondary to microvascular decompression trigeminal nerve surgery 11/02/2024. I personally reviewed it and felt encephalomalacia was over the right cerebellar and not occipital region and this seems due to likely from decompression. - Labs CBC & Chem 7: 01/13/25 02:59 01/14/25 03:16 Labs: Abnormal Lab Results - Last 24 Hours (Table) 01/14/25 Range/Units 03:16 Calcium 7.7 L (8.7-10.3) mg/dL Assessment and Plan Assessment: This is an 79 y/o gentleman with hx of right trigemenal neuralgia s/p decompression on 11/02/2024 at [facility] who presents because of dizziness, nausea, vomiting and dysathria. Acute vertigo with dysarthria: Rule out stroke vs peripheral. On examination other than dysarthria no focal deficits. History of right trigeminal neuralgia s/p decompression on 11/02/2024 and had encephalomalacia over the right cerebellar as result of decompression Plan: CT head: No acute intracrnail process. New from prior 06/29/2021, encephalomalacia/hypodense area within the right occipital lobe. Unclear if this is secondary to microvascular decompression trigeminal nerve surgery 11/02/2024. I personally reviewed it and felt encephalomalacia was over the right cerebellar and not occipital region and this seems due to likely from decompression. Pending MRI Brain, MRA head and neck. Continue Meclizine 25mg 1 tab qid from PRN to schedule for 7 days and after that PRN. Continue IV fluids. Will defer the rest of medical management to primary team and other specialist. The plan is discussed with patient and his . Time with Patient: Less than 30
--- NOTE | 2025-01-14 14:59 | P.PN ---
Subjective Progress Note Date: 01/14/25 History of present illness; Patient has 79-year-old male with trigeminal nerve decompression surgery on Oct presented with nausea, vomiting and dizziness. Patient's was present and provided much of the history. She states for approximately 3 days patient has felt extremely dizzy, causing nausea and vomiting. Patient states he feels room is constantly spinning, both with rest and movement. He is unable to tolerate both liquids and meals. He has tried taking Zofran without relief of nausea. He denies ringing in ears, hearing loss or head trauma or fall. No stroke history. He follows at [facility] with Dr. Cuba neurosurgeon. Patient denies any abdominal pain, diarrhea/constipation, chest pain, shortness of breath or urinary complaints. REVIEW OF SYSTEMS: Pertinent positives and negatives noted in HPI. 01/13/2025 Patient seen and examined at bedside. Patient attest to some mild abdominal pain without bowel movement since admission. He continues to attest to intermittent dizziness. Awaiting outside reports to proceed with MRI. 01/14/2025 Patient seen and examined at bedside. Patient with worsening dizziness today. Denies nausea or vomiting. Eating well. No bowel movement. Brain MRI with MRA this afternoon. Neurology following. PHYSICAL EXAMINATION: Vitals reviewed GENERAL: Resting comfortably in bed. CARDIOVASCULAR: S1 and S2 present. No murmurs, rubs, or gallops. PULMONARY: Chest is clear to auscultation, no wheezing, rhonchi, or crackles. ABDOMEN: Soft, nontender, nondistended. No palpable organomegaly. MUSCULOSKELETAL: No apparent joint swelling and deformities. EXTREMITIES: No apparent cyanosis, clubbing. No pedal edema. NEUROLOGICAL: Gross neurological examination with no apparent focal deficits. Significant objective findings: Labs BMP unremarkable Brain MRI with MRA this afternoon. Assessment and Plan: In summary, patient has 79-year-old male with recent trigeminal nerve decompression surgery presented with nausea, vomiting and dizziness. # Nausea and vomiting, related to vertigo, improved #Starvation ketosis, improved Begin Zofran 4 mg IVP every 8 hours as needed for nausea and vomiting Begin Dilaudid 0.5 mg IV every 6 hours for pain Monitor BMP # Acute vertigo with dysarthria CT brain findings of hypodense area within right occipital lobe/cerebellum No focal deficits on exam Unclear etiology, possibly secondary to microvascular decompression trigeminal nerve surgery 11/02/2024 Begin meclizine 25 mg 4 times daily as needed for vertigo MRI brain, MRA head and neck ordered, rule out CVA Neurology consulted Chronic Medical Conditions #GERD #BPH Resume home medications DVT ppx: Subq Lovenox 40 meq daily Code status: Full code F: P.o. E: Replete as needed N: Heart healthy diet Anticipated discharge place: Pending clinical course Anticipated discharge time: Pending clinical course Dictation was produced using [employer] dictation software. Please excuse any grammatical, word or spelling errors. Objective - Vital Signs Vital signs: Vital Signs Temp 98.4 F 01/14/25 06:52 Pulse 61 01/14/25 06:52 Resp 18 01/14/25 06:52 BP 117/71 01/14/25 06:52 Pulse Ox 92 L 01/14/25 06:52 FiO2 Intake & Output 01/13/25 01/14/25 01/14/25 18:59 06:59 18:59 Intake Total 240 Balance 240 Intake: Oral 240 Other: Voiding Method Urinal Urinal # Voids 2 3 # Bowel Movements 0 - Labs CBC & Chem 7: 01/13/25 02:59 01/14/25 03:16 Labs: Abnormal Lab Results - Last 24 Hours (Table) 01/13/25 Range/Units 02:59 Calcium 8.2 L (8.7-10.3) mg/dL
--- NOTE | 2025-01-14 16:26 | MR ---
EXAMINATION TYPE: MR angio head wo con DATE OF EXAM: 01/14/2025 2:58 PM COMPARISON: None. CLINICAL INDICATION: Male, 79 years old with history of vertigo. Possible posterior circulation cva, Vertigo, Possible posterior circulation cva TECHNIQUE: Multiplanar multiecho imaging on a 3.0 Jelly magnet is performed through the [place] of [facility]. 3-D [id number] imaging is performed. Source images are reviewed on the computer in the axi al plane. Reconstructed images rotating on the computer are reviewed. IV Contrast: mL (None, if empty) FINDINGS: The internal carotid arteries bifurcate normally into A1 and M1 segments. The A2 segments are normal. Middle cerebral artery branches are normal. Anterior communicating artery as visualized is patent. The right posterior communicating artery is patent. The left posterior communicating artery is patent. Vertebrobasilar arteries within the [id number]-wd-wwim are normal. Left vertebral artery is dominant Post erior cerebral vasculature is normal. No suspicious aneurysm or aneurysmal dilatation is evident. N o obstructions are identified. No significant flow-limiting stenosis is evident. Other: There is a hypointense lesion within the cerebellum. Please see CT brain report same date IMPRESSION: 1. No acute MRA [place] changes. 2. No suspicious vascular flow disruption posterior right cerebellum. 3. There is a hypointense lesion within the posterior right cerebellum. Please see MRI report of the brain same date [facility], , 01/14/2025 4:24 PM
--- NOTE | 2025-01-14 16:26 | MR ---
EXAMINATION TYPE: MR brain wo/w mrane wo/wcon DATE OF EXAM: 01/14/2025 COMPARISON: CT brain 3 days ago and 2020 HISTORY: Vertigo with dysarthria TECHNIQUE: Multiplanar, multisequence images of the brain and brainstem is performed without and with IV contras t, utilizing 9 mL intravenous Gadobutrol . MRA neck without and with contrast. FINDINGS: Diffusion weighted images demonstrate no evidence of a recent infarct or other diffusion ab normality. There is mild to moderate ventricular and sulcal prominence redemonstrated. There are sca ttered foci of T2 hyperintensity seen throughout the white matter bilaterally. Approximately 15 scatt ered lesions are seen. Lesions are nonspecific in appearance and distribution. Midline structures demonstrate normal morphology. The craniocervical junction appears within normal limits. There is a thin-walled cyst or cystic lesion or fluid collection in the right cerebellar hem isphere measuring 2.9 x 2.6 cm axial image 11 x 1.8 cm craniocaudal dimension. There is significant s urrounding T2 hyperintensity or vasogenic edema causing effacement of the fourth ventricle and mass e ffect with extending into the left cerebellar hemisphere. There is adjacent inferior right craniectom y change seen better on CT with small thin-walled fluid collection in the deeper scalp soft tissue at this level inferiorly measuring 1.8 cm axial image 6. Post contrast images demonstrate no abnormal e nhancement at this level. There is however new filling defect or thrombus in the draining right sagit davida and transverse sinus. Finding best appreciated on axial image 14. Mild to moderate mucosal thicke lj involving the bilaterally maxillary and bilateral ethmoid sinuses is present. The globes are int act. There is a tortuous course to the left proximal common carotid artery. There is no hemodynamically si gnificant stenosis at the carotid bulb level bilaterally. Patent external carotid arteries are seen b ilaterally. Vertebral arteries are patent to the basilar junction. Left vertebral artery is dominant. IMPRESSION: 1. Suspected new 2.9 cm thin-walled fluid collection or more likely resection cavity in the right cer ebellum. No suspicious enhancement but there is significant vasogenic edema with mass effect on the f ourth ventricle and mass effect extending into the medial aspect of the left cerebellar hemisphere. M idline shift at this level is seen. Note is made of dural venous sinus thrombosis involving the drain ing right sagittal and transverse vein at this level. 2. No significant stenosis at carotid bulb level bilaterally. [facility], , 01/14/2025 4:24 PM
[2025-01-14] MEDS: polyethylene glycoL 3350 17 GM POWD.PACK PO SCH (22:35)
[2025-01-15] MEDS: SALINE IV ONE (11:25)
[2025-01-15] MEDS: MANNITOL 20% IV ONE (11:25)
[2025-01-15 11:27] LABS: Basophils # (A) 0.02 10*3/uL (0.00-0.10); Basophils % (A) 0.3 %; Eosinophils # (A) 0.42 10*3/uL (0.04-0.35); HCT 44.3 % (39.6-50.0); HGB 15.3 g/dL (13.0-17.0); Lymphocytes # (A) 1.03 10*3/uL (0.90-5.00); Lymphocytes % (A) 14.8 %; MCH 32.8 pg (27.0-32.0); MCHC 34.5 g/dL (32.0-37.0); MCV 94.9 fL (80.0-97.0); Mean Platelet Volume 10.1 fL (9.5-12.2); Monocytes # (A) 0.65 10*3/uL (0.20-1.00); Monocytes % (A) 9.3 %; Neutrophils # (A) 4.82 10*3/uL (1.80-7.70); Neutrophils % (A) 69.2 %; Platelet Count 179 10*3/uL (140-440); RBC 4.67 10*6/uL (4.40-5.60); RDW 12.8 % (11.5-14.5); WBC 6.97 10*3/uL (4.50-10.00)
[2025-01-15 11:36] LABS: ALT 13 U/L (4-49); AST 16 U/L (17-59); African American GFR (CKD) 75 (>60 ml/min/1.73 sqM); Albumin 3.2 g/dL (3.5-5.0); Albumin/Globulin Ratio 1.3; Alkaline Phosphatase 70 U/L (38-126); Anion Gap 2 mmol/L; Blood Urea Nitrogen 12 mg/dL (9-20); Calcium 8.5 mg/dL (8.4-10.2); Carbon Dioxide 29 mmol/L (22-30); Chloride 105 mmol/L (98-107); Globulin 2.4 g/dL; Glucose 107 mg/dL (74-99); Non-African American GFR(CKD) 64 (>60 ml/min/1.73 sqM); Sodium 136 mmol/L (137-145); Total Bilirubin 0.7 mg/dL (0.2-1.3); Total Protein 5.6 g/dL (6.3-8.2)
[2025-01-15 11:49] LABS: Partial Thromboplastin Time 23.6 sec (22.0-30.0); Prothrombin Time 10.9 sec (10.0-12.5)
[2025-01-15] MEDS: HEPARIN SOD,PORK IN 0.45% NACL 25,000 UNIT in 0.45% NACL 1 250ML.BAG IV SCH (12:11)
--- NOTE | 2025-01-15 12:19 | P.CNPUL ---
History of Present Illness Consult date: 01/15/25 Requesting physician: Rojas Sotelo Reason for consult: other (Transferred to ICU) Chief complaint: Nausea and vomiting History of present illness: This is an 79-year-old white male with history of hypertension, trigeminal neuralgia decompression done at [facility], 11/02/2024. Patient pr esented to the ER on , chief complaint was mostly nausea vomiting and dizziness. His symptoms have been going on for the last 3 days prior to presentation to ER. Described dizziness as a spinning sensation. Patient was also complaining of mild headache, he had no shortness of breath, patient tried Zofran for his nausea but no relief. On 01/12, patient was seen by neurology on consultation, patient underwent CT of the head which showed no acute intracranial process there was evidence of encephalomalacia and hypodense areas within the right occipital lobe. And findings were felt to be related to decompression. MRI of the brain was ordered, this was done yesterday, and it showed 2.9 cm thin-walled fluid collection in the right cerebellum with significant vasogenic edema with mass effect on the fourth ventricle and mass effect extending into the medial aspect of the left cerebellar hemisphere. Midline shift at this level noted and there was evidence of dural venous sinus thrombosis involving the draining of right sagittal and transverse vein at this level. Hence patient was reevaluated again by neurology and recommending transfer to a tertiary care center where neurosurgery is available, in the meantime I was asked to see the patient to transfer temporarily to the our ICU for close neurologic monitoring. I saw this patient and arrange for transfer to ICU. Review of Systems REVIEW OF SYSTEMS: CONSTITUTIONAL: Negative. EYES: Negative. ENT: Negative. CARDIAC: Negative. PULMONARY: No cough no wheezing no shortness of breath GI: As noted in HPI nausea vomiting and dizziness GENITOURINARY: Negative. MUSCULOSKELETAL: Negative. SKIN: Negative. NEUROPSYCH: Negative. ENDOCRINE: As noted in HPI multiple neurological symptoms mostly vertigo and headache on admission. HEMATOLOGIC: Negative. Past Medical History Past Medical History: GERD/Reflux, Hyperlipidemia, Hypertension, Osteoarthritis (OA), Sleep Apnea/CPAP/BIPAP Additional Past Medical History / Comment(s): PAncreatitis. DOES NOT USE CPAP, FREQ HEARTBURN, TRIGEMINAL NEURALGIA History of Any Multi-Drug Resistant Organisms: None Reported Past Surgical History: Joint Replacement, Orthopedic Surgery Additional Past Surgical History / Comment(s): foot surg., surg. for sleep apnea, COLONOSCOPY, UROLIFT, LT TKA, Right retromstoid craniectomy and micovascular decompression trigeminal nerve (), Past Anesthesia/Blood Transfusion Reactions: No Reported Reaction Past Psychological History: No Psychological Hx Reported Smoking Status: Never smoker Past Alcohol Use History: None Reported Past Drug Use History: None Reported - Past Family History Father Family Medical History: Cancer Additional Family Medical History / Comment(s): LUNG Medications and Allergies Home Medications Medication Instructions Recorded Confirmed Type Famotidine 20 mg PO BID 01/18/23 01/11/25 History Pregabalin [Lyrica] 75 mg PO HS 12/18/23 01/11/25 History Ketoconazole 2% Shampoo [Nizoral] 1 applic TOPICAL DAILY 01/11/25 01/11/25 History Ondansetron Odt [Zofran Odt] 4 mg PO Q8H PRN 01/11/25 01/11/25 History Tamsulosin [Flomax] 0.4 mg PO BID 01/11/25 01/11/25 History fluocinolone acetonide oiL 1 applic BOTH EARS DAILY PRN 01/11/25 01/11/25 History [fluocinolone acetonide oiL Otic Soln] hydroCHLOROthiazide [Hydrodiuril] 12.5 mg PO DAILY 01/11/25 01/11/25 History Allergies Allergy/AdvReac Type Severity Reaction Status Date / Time No Known Allergies Allergy Verified 01/11/25 20:35 Physical Exam Vitals: Vital Signs Temp Pulse Resp BP Pulse Ox 01/15/25 07:07 98.3 F 59 L 18 112/54 93 L 01/15/25 00:28 98.0 F 60 18 146/72 97 01/14/25 23:08 96 01/14/25 19:49 97.4 F L 57 L 16 126/76 126 H 01/14/25 19:32 98.3 F 63 18 128/75 96 01/14/25 16:16 62 01/14/25 16:14 98.0 F 69 18 125/69 Intake and Output 01/14/25 01/15/25 01/15/25 22:59 06:59 14:59 Output Total 300 300 Balance -300 -300 Output: Urine 300 300 Other: # Voids 2 # Bowel Movements 1 GENERAL: Revealed 79-year-old white male in no distress, on room air Head: Atraumatic, normocephalic CARDIOVASCULAR: Distant S1 and S2 present. No murmurs, rubs, or gallops. PULMONARY: Chest is clear to auscultation, no wheezing, rhonchi, or crackles. ABDOMEN: Soft, nontender, nondistended. No palpable organomegaly. MUSCULOSKELETAL: No apparent joint swelling and deformities. EXTREMITIES: No apparent cyanosis, clubbing. No pedal edema. NEUROLOGICAL: Alert oriented x 3 no gross focal neurologic deficit Results - Laboratory Findings CBC and BMP: 01/15/25 11:11 01/15/25 11:11 PT/INR, D-dimer PT 11.2 sec (10.0-12.5) 01/11/25 22:35 INR 1.0 (<1.2) 01/11/25 22:35 Abnormal lab findings: Abnormal Labs 01/11/25 01/11/25 01/11/25 20:59 20:59 21:17 Hgb 17.4 H Hct 51.2 H MCH 32.2 H Lymphocytes # 0.51 L Eosinophils # 0.03 L APTT Sodium Carbon Dioxide 32 H BUN 25 H Glucose 129 H Calcium AST Total Protein Albumin Urine Protein 2+ H Urine Ketones 2+ H Urine Mucus Occasional H 01/11/25 01/13/25 01/14/25 22:35 02:59 03:16 Hgb Hct MCH Lymphocytes # Eosinophils # APTT 20.5 L Sodium Carbon Dioxide BUN Glucose Calcium 8.2 L 7.7 L AST Total Protein Albumin Urine Protein Urine Ketones Urine Mucus 01/15/25 01/15/25 11:11 11:11 Hgb Hct MCH 32.8 H Lymphocytes # Eosinophils # 0.42 H APTT Sodium 136 L Carbon Dioxide BUN Glucose 107 H Calcium AST 16 L Total Protein 5.6 L Albumin 3.2 L Urine Protein Urine Ketones Urine Mucus - Diagnostic Findings Additional studies: MRI brain as noted in HPI Assessment and Plan Assessment: Impression: Multiple neurological symptoms with nausea vomiting, vertigo, and headache s econdary to dural venous sinus thrombosis, and 2.9 cm thin-walled fluid collection in the right cerebellum with vasogenic edema and mass effect on the fourth ventricle as well as the medial aspect of the cerebellar hemisphere. With mid line shift at the same level. Acute vertigo with dysarthria secondary to above History of trigeminal neuralgia decompression Degenerative joint disease benign essential hypertension GERD without esophagitis Obstructive sleep apnea syndrome Recommendation: Monitor patient in the ICU with neurologic checks as recommended by neurology Patient is in the process of being transferred to a tertiary care center, transfer is being addressed by neurology and admitting service on the case. Will monitor in the ICU and will continue to follow Time with Patient: Greater than 30
[2025-01-15] MEDS: SODIUM CHLORIDE 3%(HYPERTONIC) 500 ML IV ONE (13:36)
--- NOTE | 2025-01-15 14:44 | P.PN ---
Subjective Progress Note Date: 01/15/25 History of present illness; Patient has 79-year-old male with trigeminal nerve decompression surgery on Oct presented with nausea, vomiting and dizziness. Patient's was present and provided much of the history. She states for approximately 3 days patient has felt extremely dizzy, causing nausea and vomiting. Patient states he feels room is constantly spinning, both with rest and movement. He is unable to tolerate both liquids and meals. He has tried taking Zofran without relief of nausea. He denies ringing in ears, hearing loss or head trauma or fall. No stroke history. He follows at [facility] with Dr. Cuba neurosurgeon. Patient denies any abdominal pain, diarrhea/constipation, chest pain, shortness of breath or urinary complaints. REVIEW OF SYSTEMS: Pertinent positives and negatives noted in HPI. 01/13/2025 Patient seen and examined at bedside. Patient attest to some mild abdominal pain without bowel movement since admission. He continues to attest to intermittent dizziness. Awaiting outside reports to proceed with MRI. 01/14/2025 Patient seen and examined at bedside. Patient with worsening dizziness today. Denies nausea or vomiting. Eating well. No bowel movement. Brain MRI with MRA this afternoon. Neurology following. 01/15/2025 Patient seen and examined at bedside. Patient continues to have significant dizziness. Denies nausea and vomiting. Discussed brain MRI and MRA findings. Neurology is following and suggest ICU with transfer to [facility]. Discussed case with transfer team at [facility] and awaiting callback. After calling back no further update was available, no accepting physician as of this time. Will continue to reattempt. PHYSICAL EXAMINATION: Vitals reviewed GENERAL: Resting in bed. CARDIOVASCULAR: S1 and S2 present. No murmurs, rubs, or gallops. PULMONARY: Chest is clear to auscultation, no wheezing, rhonchi, or crackles. ABDOMEN: Soft, nontender, nondistended. No palpable organomegaly. MUSCULOSKELETAL: No apparent joint swelling and deformities. EXTREMITIES: No apparent cyanosis, clubbing. No pedal edema. NEUROLOGICAL: Gross neurological examination with no apparent focal deficits. Significant objective findings: Labs BMP unremarkable Brain MRI with MRA findings of suspected new 2.9 cm thin-walled fluid collection or more likely resection cavity in the right cerebellum. No suspicious enhancement but there is significant vasogenic edema with mass effect on fourth ventricle and mass effect extending into the medial aspect of the left cerebral hemisphere. Midline shift at this level was seen. Note is made of dural venous sinus thrombosis involving the right sagittal and transverse vein. Assessment and Plan: In summary, patient has 79-year-old male with recent trigeminal nerve decompression surgery presented with nausea, vomiting and dizziness. # Acute vertigo with dysarthria CT brain findings of hypodense area within right occipital lobe/cerebellum No focal deficits on exam Unclear etiology, possibly secondary to microvascular decompression trigeminal nerve surgery 11/02/2024 Begin meclizine 25 mg 4 times daily as needed for vertigo MRI brain, MRA head and neck ordered, findings of 2.9 cm fluid collection in right cerebellum, mass effect of fourth ventricle extending to medial aspect of left cerebral hemisphere, midline shift noted Mannitol given Heparin infusion 10 mL/h Neurology following, suggest transfer to [facility] # Nausea and vomiting, related to vertigo, improved #Starvation ketosis, improved Begin Zofran 4 mg IVP every 8 hours as needed for nausea and vomiting Begin Dilaudid 0.5 mg IV every 6 hours for pain Monitor BMP Chronic Medical Conditions #GERD #BPH Resume home medications DVT ppx: Subq Lovenox 40 meq daily Code status: Full code F: IV NS E: Replete as needed N: Heart healthy diet Anticipated discharge place: [facility] Anticipated discharge time: Pending accepting physician in bed. Dr. Orozco seen patient with resident, present during exam, and agreed with findings. Dictation was produced using [employer] dictation software. Please excuse any grammatical, word or spelling errors. Objective - Vital Signs Vital signs: Vital Signs Temp 98.3 F 01/15/25 07:07 Pulse 59 L 01/15/25 07:07 Resp 18 01/15/25 07:07 BP 112/54 01/15/25 07:07 Pulse Ox 93 L 01/15/25 07:07 FiO2 Intake & Output 01/14/25 01/15/25 01/15/25 18:59 06:59 18:59 Output Total 300 Balance -300 Output: Urine 300 Other: # Voids 2 # Bowel Movements 1 - Labs CBC & Chem 7: 01/15/25 11:11 01/15/25 12:22
--- NOTE | 2025-01-15 14:56 | P.PN ---
Subjective Progress Note Date: 01/15/25 am following-up with patient and he continues to be dizzy. He feels it is at rest. He feels nauseous but no vomiting. Denies any new neurological issues. Objective - Vital Signs Vital signs: Vital Signs Temp 98.7 F 01/15/25 12:00 Pulse 60 01/15/25 14:00 Resp 19 01/15/25 14:00 BP 117/69 01/15/25 14:00 Pulse Ox 93 L 01/15/25 14:00 FiO2 Intake & Output 01/14/25 01/15/25 01/15/25 18:59 06:59 18:59 Intake Total 70 Output Total 300 600 Balance -300 -530 Intake: IV 70 Sodium Chloride 3%( 70 Hypertonic) 500 ml @ 70 mls/hr IV .[id number] ONE Rx#: [id number] Output: Urine 300 600 Other: Voiding Method Urinal # Voids 2 # Bowel Movements 1 - Exam General: Lying in bed and is not in acute distress. Neuro: Somewhat limited since patient is dizziness. The patient is awake, alert, oriented to self, place and time. Is following simple commands. No aphasia. Pupils are round, equal and reactive to light. Pupils are 3mm bilaterally. Visual hernandez are full to confrontation. EOM intact and no nystagmus. No facial weakness. No dysarthria. Motor: Strength is 5/5 throughout. Normal tone and bulk. Sensation is normal to touch throughout. Cerebellar: Ataxia finger to nose and heel to [place] over the right. Some of the work-up during this hospital visit consisted of: CT head: No acute intracrnail process. New from prior 06/29/2021, encephalomalacia/hypodense area within the right occipital lobe. Unclear if this is secondary to microvascular decompression trigeminal nerve surgery 11/02/2024. I personally reviewed it and felt encephalomalacia was over the right cerebellar and not occipital region and this seems due to likely from decompression. MRI brain and MRA neck: Suspected new 2.9 cm thin walled fluid collection or more likely resection cavity in the right cerebellum. No suspicous enhancement but there is significant vasogenic edema with mass effect on the fourth v entricle and mass effect extending into the medial aspect of the left cerebellar hemisphere. Mildline shift at this level is seen. Not is made of dural venous sinus thrombosis involving the draining right sagittal and transverse vein at this level. No significant stenosis at the carotid bulb level bilaterally. MRA head: MRA [place]. No suspicious vascular flow distribution posterior right cerebellum. There is a hypodense lesion within the right cerebellum please see MRI report of the MRI brain same date - Labs CBC & Chem 7: 01/15/25 11:11 01/15/25 12:22 Labs: Abnormal Lab Results - Last 24 Hours (Table) 01/15/25 01/15/25 01/15/25 Range/Units 11:11 11:11 12:22 MCH 32.8 H (27.0-32.0) pg Eosinophils # 0.42 H (0.04-0.35) 10*3/uL Sodium 136 L 136 L (137-145) mmol/L Glucose 107 H (74-99) mg/dL AST 16 L (17-59) U/L Total Protein 5.6 L (6.3-8.2) g/dL Albumin 3.2 L (3.5-5.0) g/dL Assessment and Plan Assessment: This is an 79 y/o gentleman with hx of right trigemenal neuralgia s/p decompression on 11/02/2024 at [facility] who presents because of dizziness, nausea, vomiting and dysathria. Acute vertigo with dysarthria. On examination patient has ataxia on the right. On MRI there is large vasogenic edema over the right cerebellum with midline shift and mass effect on fourth ventricle. Dural venous sinus thrombosis over the right sagital and transverse vein on MR. History of right trigeminal neuralgia s/p decompression on 11/02/2024 and had encephalomalacia over the right cerebellar as result of decompression Plan: I requested the patient to be transferred to ICU. I ordered a one-time dose of mannitol and started the patient on 3% hypertonic 70 cc an hour Because of the venous sinus thrombosis I started the patient on heparin drip and to avoid boluses and will try to keep the PTT between 45 and 60. If patient has any new focal deficits or headache then stop heparin drip immediately and obtain CT head STAT. If patient remains in our facility by tomorrow then will get repeat CT head to assess if any change. Change the neurochecks to every hours Will have the patient transferred to a tertiary center for neurosurgical evaluation. Will attempt Justo Lopez since he is known to Dr. Cuba From [facility] and had resection on 10/2024. Will defer the rest of medical management to primary team and other specialist. The plan is discussed with patient, his , primary team and ICU team. Dr. Mitchell will resume neurology service tomorrow A.M. Spent a total of 45minutes on care. Time with Patient: Greater than 30
[2025-01-15 17:53] VITALS: TEMP 97.8
[2025-01-15] MEDS: HEPARIN SODIUM 1,000 UN/ML (10ML VL) IV PRN (18:33)
[2025-01-15 19:32] VITALS: BP 144/74; PULSE 62; RESP 14
== END 2025-01-15 21:40 | disposition short-term general hospital (02) | DRG 91 ==
LOC: EC 19:39 → 6NMEDSUR 23:48 → OBSVTOIN 23:49 → 4SSUR 01-12 00:31 → 2SICU 01-15 11:40
PROVIDERS: ADMIT Internal Medicine; ATTEND Internal Medicine
DX: G08 Intracranial and intraspinal phlebitis and thrombophlebitis (principal); G93.6 Cerebral edema; I10 Essential (primary) hypertension; E88.89 Other specified metabolic disorders; E78.5 Hyperlipidemia, unspecified; G47.33 Obstructive sleep apnea (adult) (pediatric); K21.9 Gastro-esophageal reflux disease without esophagitis; R47.1 Dysarthria and anarthria; M19.90 Unspecified osteoarthritis, unspecified site; G93.89 Other specified disorders of brain; N40.0 Benign prostatic hyperplasia without lower urinary tract symptoms; Z79.899 Other long term (current) drug therapy
CPT/HCPCS: 36415; 70450; 70544; 70549; 70553; 80048; 80053; 81001; 82150; 83605; 83690; 84295; 84484; 85025; 85610; 85652; 85730; 86140; 87636; 93005; 96361; 96374; 96375; 99285